=== PATIENT | female | born 1950 | race Caucasian/White ===

== ENCOUNTER 2020-02-04 20:29 | Inpatient (IN) | payer MEDICARE, SELFPAY ==
[2020-02-04 20:45] VITALS: BP 172/73; PULSE 65; RESP 18; TEMP 37.1; O2SAT 95; BMI 25.8
--- NOTE | 2020-02-04 21:03 | ED_ITS ---
HPI - Nausea/Vomiting/Diarrhea General: Chief complaint: Nausea/Vomiting/Diarrhea Stated complaint: N/V Time Seen by Provider: 02/04/20 20:56 History of Present Illness: MD elicited complaint: nausea, vomiting and abdominal pain (epigastric, ruq) Onset (ago): hour(s) (3pm) Description of vomiting: food contents and bilious Associated nausea: Yes Associated abdominal pain: Yes Location of pain: Epigastric and RUQ Severity: moderate Quality: sharp Exacerbating factors: movement Relieving factors: none Associated symtoms: Reports nausea; Denies anxiety, change in vision, chest pain, dizziness, dysuria, headache(s) or palpitations Review of Systems Const: Denies: fever or chills Eyes: Denies: change in vision or blurry vision ENMT: Denies: painful swallowing, post nasal drip or facial/sinus pain Card: Denies: chest pain, palpitations or edema Resp: Denies: shortness of breath, productive cough, non-productive cough or wheezing GI: Reports: nausea : Denies: painful urination or blood in urine Musc: Reports: back pain; Denies: redness or joint warmth Skin/Breast: Denies: rash, itching or redness Neuro: Denies: headache, dizziness, vertigo, confusion or seizure-like activity Psych: Denies: anxiety PFSH ED PFSH: Medical History (Updated 02/05/20 @ 01:21 by Bronson Black DO) Cavernous hemangioma of liver Dyslipidemia Hypertension Spondylolisthesis Social History Smoking and tobacco status: never smoked Physical Exam Const: GENERAL APPEARANCE: well developed ORIENTATION/CONSCIOUSNESS: Yes oriented to person, Yes oriented to place and Yes oriented to time HENMT: COMMON NORMALS: normocephalic, external ears normal and external nose normal HEAD & SCALP: normocephalic FACE & SINUS: normal facial exam NOSE: external nose normal and no nasal discharge EXTERNAL EAR: Yes external ears normal MOUTH: tongue normal TEETH & GINGIVA: no abnormal tooth and associated gingiva Eye: COMMON NORMALS: PERRL, EOMs intact bilaterally and conjunctivae normal EYELID: eyelids normal CONJUNCTIVA: Yes conjunctivae normal PUPIL: Yes PERRL Neck/C-Spine: GENERAL: No tracheal deviation Chest: COMMONS NORMALS: inspection of chest normal CHEST: No tenderness Resp: COMMON NORMALS: clear to auscultation bilaterally EFFORT & INSPECTION: No tachypneic, No respiratory distress, No retractions, No uses accessory muscles and No tracheal deviation AUSCULTATION: clear to auscultation bilaterally, no rhonchi, no wheezes and lung sounds not diminished Cardio: COMMON NORMALS: regular rate and regular rhythm RATE: regular rate RHYTHM: regular rhythm HEART SOUNDS: no murmurs PERIPHERAL PULSES: radial pulses present GI: INSPECTION: No abdominal distension AUSCULTATION: No hyperactive bowel sounds and No hypoactive bowel sounds PALPATION: Yes tender Details: RUQ and other (eigastric), Yes guarding and No rigid PERCUSSION: no dullness to percussion and no tympanic to percussion : COMMON NORMALS: Yes no CVA tenderness BLADDER/KIDNEY EXAM: Yes no CVA tenderness Back/Pelvis: COMMON NORMALS: no CVA tenderness Neuro: SENSORIUM/ORIENTATION: Yes oriented to person, Yes oriented to place and Yes oriented to time Psych: COMMON NORMALS: mental status grossly normal Skin: COMMON NORMALS: no rashes or lesions noted GENERAL SKIN EXAM: no rashes or lesions noted Course Vital Signs: Vital signs: Vital Signs Temperature 98.8 F 02/04/20 20:45 Pulse Rate 70 02/05/20 00:00 Respiratory Rate 16 02/05/20 00:00 Blood Pressure 168/72 02/05/20 00:00 Pulse Oximetry 98 02/05/20 00:00 MDM - Nausea/Vomiting/Diarrhea MDM Narrative: Medical decision making narrative: 69-year-old female with right upper quadrant epigastric pain. She presents after several episodes of vomiting. Pain is improved now, as well as nausea. She is received some IV fluid. Her white count was only 10.5. Her transaminases are normal, but her bilirubin is 4. Her lipase is elevated at 11,000. Gallbladder ultrasound shows a mildly thickened wall with some pericholecystic fluid. There are gallstones present. Bile duct was borderline. MRCP is completed. It shows no ductal stone, normal bile ducts, mild gallbladder wall edema, and pancreatitis. She has been given Zosyn. She will be admitted. Surgery is available for consult. Lab Data: Labs: Lab Results 02/04/20 02/04/20 Range/Units 21:05 21:05 WBC 10.5 H (4.0-10.0) 10^3/ uL RBC 4.60 (4.1-5.3) 10^6/u L Hgb 14.3 (11.5-15.3) g/dL Hct 42.7 (37.0-47.0) % MCV 92.8 (81-99) fL MCH 31.1 (28.0-34.0) pg MCHC 33.5 (30.0-36.0) g/dL RDW 14.9 (12.1-15.1) % Plt Count 108 L (130-400) 10^3/c mm MPV 11.6 H (7.4-10.4) fL Neut % (Auto) 87.2 % Lymph % (Auto) 8.3 % Caroline % (Auto) 3.1 % Eos % (Auto) 0.9 % Baso % (Auto) 0.2 % Neut # (Auto) 9.2 H (1.8-7.7) 10^3/u L Lymph # (Auto) 0.9 (0.8-4.8) 10^3/u L Caroline # (Auto) 0.3 (0.2-0.9) 10^3/u L Eos # (Auto) 0.1 (0.0-0.8) 10^3/u L Baso # (Auto) 0.0 (0.0-0.1) 10^3/u L Nucleated RBC % (a uto) 0 % Nucleated RBCs # 0.0 /100WBC Sodium 140 (136-145) mmol/L Potassium 4.0 (3.5-5.1) mmol/L Chloride 104 (98-107) mmol/L Carbon Dioxide 23 (22-29) mmol/L Anion Gap 17.0 (5-19) BUN 15 (8-23) mg/dL Creatinine 1.2 H (0.5-0.9) mg/dL GFR Calculation 44.8 L (90-130) mL/min Glucose 150 H (65-115) mg/dL Calculated Osmolal ity 289 (285-295) mOsm/k g Calcium 9.5 (8.5-10.5) mg/dL Total Bilirubin 4.0 H (0.15-1.2) mg/dL AST 80 H (0-32) U/L ALT 31 (0-33) U/L Alkaline Phosphata se 78 (35-105) IU/L Total Protein 7.3 (6.6-8.7) g/dL Albumin 3.6 (3.5-5.2) g/dL Globulin 3.7 (1.3-4.6) g/dL Lipase 70715 H (13-60) U/L Discharge Plan Discharge Patient Disposition: Admitted As Inpatient Clinical Impression: Acute pancreatitis, Cholecystitis with cholelithiasis Condition: Stable Coding Level of Care Code ED Manager Collection for Chg Fwd Exam Comprehensive
--- NOTE | 2020-02-04 21:13 | USR_ITS ---
PROCEDURE INFORMATION: Exam: US Abdomen Limited, Right Upper Quadrant Exam date and time: 02/04/2020 10:04 PM Age: 69 years old Clinical indication: Abdominal pain; Acute; Additional info: Ruq pain TECHNIQUE: Imaging protocol: Real-time ultrasound of the abdomen with image documentation. Examination was focused on the right upper quadrant. COMPARISON: US abdomen limited [id number] 12/24/2017 10:23 AM FINDINGS: Liver: Slight increased echogenicity of the liver may indicate fatty infiltration. Otherwise unremarkable liver, no focal abnormality. Gallbladder: There appear to be gallstones and possibly some biliary sludge in the gallbladder. Moderate gallbladder wall thickening/edema, measuring up to 6.8 mm. No definite pericholecystic fluid. The gallbladder appears somewhat distended, transverse diameter up to 4.5 cm. Technologist states patient was tender over the gallbladder region during scanning. Common bile duct: Borderline/mild biliary tree prominence, with common duct measuring up to 5.6 mm. No visible common duct stone by ultrasound. Significance uncertain. Correlation with laboratory/bilirubin levels may be helpful to determine if there is any significant biliary obstruction. Pancreas: Visible pancreas unremarkable. Right kidney: Images of the right kidney show no hydronephrosis. US/US gall bladder [id number] IMPRESSION: 1. Cholelithiasis, see additional details above. 2. Borderline/mild biliary tree prominence, see above discussion. 3. Other findings discussed above.
[2020-02-04 21:16] LABS: Basophils % 0.2 %; Eosinophils # 0.1 10^3/uL (0.0-0.8); Eosinophils % 0.9 %; Hematocrit 42.7 % (37.0-47.0); Hemoglobin 14.3 g/dL (11.5-15.3); Lymphocytes # 0.9 10^3/uL (0.8-4.8); Lymphocytes % 8.3 %; Mean Corpuscular HGB Conc 33.5 g/dL (30.0-36.0); Mean Corpuscular Hemoglobin 31.1 pg (28.0-34.0); Mean Corpuscular Volume 92.8 fL (81-99); Mean Platelet Volume 11.6 fL (7.4-10.4); Monocytes # 0.3 10^3/uL (0.2-0.9); Monocytes % 3.1 %; Neutrophils # 9.2 10^3/uL (1.8-7.7); Neutrophils % 87.2 %; Nucleated Red Blood Cells % 0 %; Platelet Count 108 10^3/cmm (130-400); Red Cell Distribution Width 14.9 % (12.1-15.1); White Blood Count 10.5 10^3/uL (4.0-10.0)
[2020-02-04 21:32] LABS: Alanine Aminotransferase 31 U/L (0-33); Albumin Level 3.6 g/dL (3.5-5.2); Alkaline Phosphatase 78 IU/L (35-105); Aspartate Amino Transferase 80 U/L (0-32); Blood Urea Nitrogen 15 mg/dL (8-23); Calcium 9.5 mg/dL (8.5-10.5); Carbon Dioxide 23 mmol/L (22-29); Chloride 104 mmol/L (98-107); Globulin 3.7 g/dL (1.3-4.6); Glomerular Filtration Rate 44.8 mL/min (90-130); Glucose 150 mg/dL (65-115); Osmolality Calculated 289 mOsm/kg (285-295); Sodium 140 mmol/L (136-145); Total Protein 7.3 g/dL (6.6-8.7)
[2020-02-04] MEDS: ondansetron 2 mg/ML SDV 2 mL 4 MG IVP (21:57)
[2020-02-04] MEDS: ketorolac 30 mg/mL INJ IVP (21:58)
[2020-02-04 22:00] VITALS: RESP 18; O2SAT 98
[2020-02-04] MEDS: fentaNYL 50 mcg/mL INJ 2mL IVP ×2 (22:00→23:36)
[2020-02-04] MEDS: sodium chloride 0.9% 1,000 ML 999 ML IV (22:03)
[2020-02-04 22:21] LABS: Lipase 11122 U/L (13-60)
--- NOTE | 2020-02-04 22:28 | MRR_ITS ---
PROCEDURE INFORMATION: Exam: MR Abdomen Without Contrast Exam date and time: 02/04/2020 11:27 PM Age: 69 years old Clinical indication: Abdominal pain; Prior surgery; Additional info: Hyperbilirubinemia, pancreatits, cholecystitis. TECHNIQUE: Imaging protocol: MR of the abdomen without contrast. COMPARISON: US gall bladder [id number] 02/04/2020 9:52 PM FINDINGS: Liver: Irregularity of liver contour is suspicious for cirrhosis. Gallbladder and bile ducts: Gallbladder is distended to a length of approximately 9.1 cm by diameter 4.6 cm. Wall thickening and pericholecystic edema are noted. Small quantity of cholelithiasis suspected. Common bile duct diameter is normal and no abnormal filling defects are evident. Pancreas: Extensive/marked peripancreatic edema noted. Spleen: Unremarkable. No splenomegaly. Adrenals: Unremarkable. No mass. Kidneys and ureters: Unremarkable. No solid mass. No hydronephrosis. Stomach and bowel: Visualized stomach and intestines are unremarkable. Intraperitoneal space: Small ascites. Arteries: No abdominal aortic aneurysm. Bones/joints: Surgical changes are suggested at lumbar spine. Soft tissues: Unremarkable. MR/MR MRCP [id number] IMPRESSION: Findings consistent with pancreatitis. Moderate to marked gallbladder distention with small quantity cholelithiasis and wall thickening; wall thickening can relate to acute or chronic inflammatory change. Findings suspicious for cirrhosis. Normal common bile duct and no findings of abnormal filling defects.
[2020-02-04 23:36] VITALS: RESP 16
--- NOTE | 2020-02-04 23:36 | PC.NURSE ---
Ems here to transfer patient to have MRI. Patients iv [facility]l per request for trip. Patient left in stable condition in care of ems.
[2020-02-05] VITALS (10 sets, daily range): BP systolic 130–168; BP diastolic 68–86; PULSE 58–101; RESP 16–20; TEMP 36.6–37.3; O2SAT 91–98
--- NOTE | 2020-02-05 00:33 | PC.NURSE ---
Patient back from MRI.
[2020-02-05] MEDS: sodium chloride 0.9% 1,000 ML 999 ML IV (00:56)
--- NOTE | 2020-02-05 01:06 | P.HP_ITS ---
Providers/Chief Complaint Chief Complaint: N/V History of Present Illness Yeni Carreno is a 69 year old female who carries diagnosis of ANDRADE came in with chief complaint of abdominal pain. Patient is stating that around 8 in the morning she went to [employer] drive-through to have a sandwich. After eating that sandwich she started experiencing abdominal pain around 1 PM which gradu ally got worse today and she decided to come to the ER for further evaluation around evening. She experienced multiple episodes of nausea and vomiting, more than 10 episodes today. No fever was noticed at home, her pain was 10/10 mostly in epigastric region radiating towards her back. She also noticed right upper quadrant pain which was getting worse as well. She has never experienced these kind of symptoms before. She does not take aspirin or Tylenol and larger doses on daily basis. She does not drink alcohol or smoke. She is denying fever, dysuria, diarrhea, constipation, chest pain, shortness of breath, sick contacts, traveling. Diagnostics in ER revealed mild leukocytosis, patient was afebrile, icteric, bilirubin 4, MRCP revealed normal CBD, positive for pancreatitis, high lipase, gallbladder wall thickening She has required multiple doses of opioids in the ER, no active emesis Review of Systems Const: Reports: chills, body aches and fatigue; Denies: fever Eyes: Denies: change in vision ENMT: Denies: throat pain Card: Denies: chest pain Resp: Denies: shortness of breath GI: Reports: abdominal pain, nausea and vomiting; Denies: vomiting blood, coffee grounds in vomit, difficulty swallowing, heartburn/indigestion or feeling full early : Denies: flank pain or difficulty urinating Musc: Denies: neck pain or back pain Skin/Breast: Denies: skin pain or new lesion Neuro: Denies: headache Psych: Denies: anxiety Endo: Denies: excessive urination Umer/Lymph: Denies: easy bruising All/Imm: Denies: hives Medications/Allergies Allergies Allergy/AdvReac Type Severity Reaction Status Date / Time oxycodone Allergy ALGY-Rash Verified 02/04/20 20:42 PFSH Acute PFSH: Medical History Cavernous hemangioma of liver Dyslipidemia Fibrocystic breast determined by biopsy Hypertension ANDRADE (nonalcoholic steatohepatitis) Spondylolisthesis Surgical History History of liver biopsy Previous back surgery L4-L5 ildefonso placement S/P thyroid biopsy Nonmalignant nodule Family History Denies family history of Diabetes Clotting disorder Dementia Chronic kidney disease (CKD) Cancer Social History Smoking and tobacco status: never smoked Alcohol intake: never Substance/Drug Use: never Household members: spouse Housing: House Vitals/I&O/Wt Last Vital Signs Temp 98.8 F 02/04/20 20:45 Pulse 70 02/05/20 00:00 Resp 16 02/05/20 00:00 BP 168/72 02/05/20 00:00 Pulse Ox 98 02/05/20 00:00 Weight last 48 hrs Weight 74.843 kg Physical Exam Narrative: EXAM NARRATIVE: This is a pleasant female comfortably lying in her bed without any active distress Patient is afebrile Sinus rhythm, heart rate 70 Systolic blood pressure 160 S1, S2 no signs of heart failure or tachycardia Abdomen tenderness to palpation in epigastric and right upper quadrant region, Donnelly's sign is positive, no signs of retroperitoneal hemorrhage Neurologically nonfocal exam EOMI, PERRLA GCS 15 Appropriate mood and affect Skin does not show any sign ischemia gangrene or ulcer Patient seems dehydrated, dry buccal mucosal membrane Data : 02/04/20 21:05 02/04/20 21:05 A&P Assessment and plan (1) Acute pancreatitis: Status: Acute Qualifiers: Acute pancreatitis complication: unspecified Pancreatitis type: biliary Qualified Code(s): K85.10 - Biliary acute pancreatitis without necrosis or infection (2) Cholecystitis with cholelithiasis: Status: Acute Qualifiers: Biliary obstruction: without biliary obstruction Cholecystitis acuity: acute Cholelithiasis location: gallbladder Qualified Code(s): K80.00 - Calculus of gallbladder with acute cholecystitis without obstruction Additional A&P Information Gallstone induced acute pancreatitis without signs of cholangitis Cholelithiasis induced cholecystitis without ductal obstruction Abdominal pain, afebrile, bilirubin 4 Mild leukocytosis, I will start her on D5 LR along Zosyn MRCP reviewed, normal CBD I believe irritation of pancreas is due to passage of stone Monitor bilirubin, liver enzymes in next 24 to 48 hours and if they are worsening she will need ERCP She will be needing elective cholecystectomy once this acute episode resolves in next 6 to 8 weeks No urgent need for general surgery consult Patient is a non-smoker, nonalcoholic, positive for Andrade N.p.o. Analgesic with morphine Protonix 40 mg IV daily Acute kidney injury secondary to dehydration: Anticipating improvement with hydration Hypertension: I would hold her hydrochlorothiazide and losartan because these 2 medications are associated with drug-induced pancreatitis as well Would use hydralazine for as needed basis DVT prophylaxis: Heparin Full code Attestations Medical Necessity Statement*: Gallstone induced pancreatitis, needs monitoring in the hospital for at least 48 hours, anticipating stay in the hospital to cross more than 2 midnights Time Spent in Patient Care: 40 Coding Level of Care Code Acute Sole Inker for [facility] Diagnoses Acute pancreatitis K85.10 Acute pancreatitis complication: unspecified Pancreatitis type: biliary Cholecystitis with cholelithiasis K80.00 Biliary obstruction: without biliary obstruction Cholecystitis acuity: acute Cholelithiasis location: gallbladder
[2020-02-05 01:56] LABS: Triglycerides 95 mg/dL (0-150)
[2020-02-05] MEDS: dextrose 5%-lactated ringers 1,000 ML 100 ML IV (02:22)
[2020-02-05] MEDS: morphine 4 mg/mL SDV 1 mL 2 MG IVP ×4 (02:24→19:51)
[2020-02-05] MEDS: heparin 5,000 unit/mL INJ 1 mL 5000 UNIT SUBCUT ×3 (02:24→18:07)
[2020-02-05] MEDS: ondansetron 2 mg/ML SDV 2 mL 4 MG IVP ×2 (04:17→09:14)
[2020-02-05] MEDS: piperacillin-tazobactam 3.375 GM in sodium chloride 0.9% (plus) 50 ML IV ×3 (04:18→20:03)
[2020-02-05 05:31] LABS: Basophils % 0.1 %; Eosinophils % 0.1 %; Hemoglobin 14.1 g/dL (11.5-15.3); Lymphocytes # 0.8 10^3/uL (0.8-4.8); Lymphocytes % 8.6 %; Mean Corpuscular Hemoglobin 30.7 pg (28.0-34.0); Mean Corpuscular Volume 95.9 fL (81-99); Mean Platelet Volume 12.2 fL (7.4-10.4); Monocytes # 0.4 10^3/uL (0.2-0.9); Monocytes % 4.3 %; Neutrophils % 86.7 %; Nucleated Red Blood Cells % 0 %; Platelet Count 117 10^3/cmm (130-400); Red Blood Count 4.59 10^6/uL (4.1-5.3); Red Cell Distribution Width 15.1 % (12.1-15.1); White Blood Count 9.2 10^3/uL (4.0-10.0)
[2020-02-05 07:32] LABS: Alanine Aminotransferase 24 U/L (0-33); Albumin Level 2.9 g/dL (3.5-5.2); Alkaline Phosphatase 59 IU/L (35-105); Anion Gap 15.9 (5-19); Aspartate Amino Transferase 60 U/L (0-32); Blood Urea Nitrogen 22 mg/dL (8-23); Calcium 8.3 mg/dL (8.5-10.5); Carbon Dioxide 22 mmol/L (22-29); Chloride 108 mmol/L (98-107); Creatinine Clr Calc Pharmacy 38.4349; Globulin 3.5 g/dL (1.3-4.6); Glomerular Filtration Rate 34.6 mL/min (90-130); Glucose 137 mg/dL (65-115); Osmolality Calculated 293 mOsm/kg (285-295); Potassium 3.9 mmol/L (3.5-5.1); Sodium 142 mmol/L (136-145); Total Protein 6.4 g/dL (6.6-8.7)
[2020-02-05 07:34] LABS: Lactic Acid level (Lactate) 1.7 mmol/L (0.5-2.2)
[2020-02-05 08:47] LABS: Lipase 5380 U/L (13-60)
[2020-02-05] MEDS: pantoprazole 40 mg SDV IVP (09:07)
--- NOTE | 2020-02-05 12:00 | P.PN_ITS ---
Subjective Subjective: Interval history: Patient continues to have abdominal pain, epigastric. Reports that better compared to yesterday and reports that pain medications are working well. Denies any shortness of breath or chest pain. Denies previous episodes of the same. Her pancreatitis appears to be gallstone related. It appears that she passed a stone as her MRCP shows no evidence of s tone in the common bile duct. Lipase is down to 5380. Patient is not diabetic and denies previous history of heart disease or stroke. She is retired and at times participates with her friend and cutting wood which is a significant physical activity and she denies any shortness of breath during it. Denies chest pain. Vitals/I&O/Wt Last Vital Signs Temp 98.5 F 02/05/20 07:25 Pulse 58 L 02/05/20 07:25 Resp 17 02/05/20 07:25 BP 147/75 02/05/20 07:25 Pulse Ox 94 02/05/20 07:25 02/04/20 02/05/20 02/05/20 22:59 06:59 14:59 Intake Total 1380 / 1380 Balance 1380 / 1380 Weight last 48 hrs Weight 74.843 kg Physical Exam Const: COMMON NORMALS: no apparent distress and oriented x3 Resp: COMMON NORMALS: normal respiratory effort and clear to auscultation bilaterally AUSCULTATION: clear to auscultation bilaterally Cardio: COMMON NORMALS: regular rate, regular rhythm and S2 normal heart sound RATE: regular rate RHYTHM: regular rhythm HEART SOUNDS: S2 normal OTHER: No lower extremity edema GI: COMMON NORMALS: soft to palpation PALPATION: Yes soft and Yes tender (Epigastric area mostly.) Neuro: COMMON NORMALS: oriented x3 and no focal motor deficits Data : 02/05/20 05:16 02/05/20 06:59 A&P Assessment and plan (1) Acute pancreatitis: Status: Acute Qualifiers: Acute pancreatitis complication: unspecified Pancreatitis type: biliary Qualified Code(s): K85.10 - Biliary acute pancreatitis without necrosis or infection (2) Cholecystitis with cholelithiasis: Status: Acute Qualifiers: Biliary obstruction: without biliary obstruction Cholecystitis acuity: acute Cholelithiasis location: gallbladder Qualified Code(s): K80.00 - Calculus of gallbladder with acute cholecystitis without obstruction Additional A&P Information Gallstone induced acute pancreatitis without signs of cholangitis Cholelithiasis induced cholecystitis without ductal obstruction Acute kidney injury secondary to dehydration: Anticipating improvement with hydration Hypertension PLAN: We will change IV fluids to LR and increase to 200 mL/h. Continue with analgesics and antiemetics. Discussed case with Dr. Guerrero who will see patient in consultation. Patient will require cholecystectomy ideally sooner. We will let Dr. Guerrero to evaluate and decide on timeframe. Continue Zosyn. Keep n.p.o. for now since patient still continues to have significant pain. DVT prophylaxis: Heparin Full code Attestations Medical Necessity Statement*: Patient with pancreatitis and cholecystitis requires close inpatient monitoring and treatment Coding Level of Care Code Acute Administrative Assistant Coordinator for [facility] Diagnoses Acute pancreatitis K85.10 Acute pancreatitis complication: unspecified Pancreatitis type: biliary Cholecystitis with cholelithiasis K80.00 Biliary obstruction: without biliary obstruction Cholecystitis acuity: acute Cholelithiasis location: gallbladder
[2020-02-05] MEDS: lactated ringers 1,000 ML 200 ML IV ×2 (12:32→17:20)
--- NOTE | 2020-02-05 17:03 | PC.NURSE ---
pt is ice chips only
[2020-02-06] VITALS (13 sets, daily range): BP systolic 120–137; BP diastolic 72–81; PULSE 81–107; RESP 16–20; TEMP 36.4–38.1; O2SAT 89–94
[2020-02-06] MEDS: heparin 5,000 unit/mL INJ 1 mL 5000 UNIT SUBCUT ×3 (01:42→17:26)
[2020-02-06] MEDS: morphine 4 mg/mL SDV 1 mL 2 MG IVP ×5 (02:56→22:02)
[2020-02-06] MEDS: lactated ringers 1,000 ML 200 ML IV ×4 (02:59→23:31)
[2020-02-06] MEDS: piperacillin-tazobactam 3.375 GM in sodium chloride 0.9% (plus) 50 ML IV ×3 (03:54→21:41)
[2020-02-06] MEDS: pantoprazole 40 mg SDV IVP (08:36)
[2020-02-06 09:30] LABS: Basophils % 0.2 %; Eosinophils % 0.1 %; Hematocrit 41.4 % (37.0-47.0); Hemoglobin 13.6 g/dL (11.5-15.3); Lymphocytes # 1.6 10^3/uL (0.8-4.8); Lymphocytes % 9.2 %; Mean Corpuscular HGB Conc 32.9 g/dL (30.0-36.0); Mean Corpuscular Hemoglobin 31.1 pg (28.0-34.0); Mean Corpuscular Volume 94.5 fL (81-99); Monocytes # 1.2 10^3/uL (0.2-0.9); Nucleated Red Blood Cells % 0 %; Platelet Count 93 10^3/cmm (130-400); Red Blood Count 4.38 10^6/uL (4.1-5.3); Red Cell Distribution Width 15.5 % (12.1-15.1); White Blood Count 16.8 10^3/uL (4.0-10.0)
[2020-02-06 09:45] LABS: Alanine Aminotransferase 20 U/L (0-33); Albumin Level 2.8 g/dL (3.5-5.2); Alkaline Phosphatase 56 IU/L (35-105); Aspartate Amino Transferase 54 U/L (0-32); Blood Urea Nitrogen 28 mg/dL (8-23); Calcium 7.4 mg/dL (8.5-10.5); Carbon Dioxide 23 mmol/L (22-29); Chloride 107 mmol/L (98-107); Globulin 3.4 g/dL (1.3-4.6); Glomerular Filtration Rate 40.9 mL/min (90-130); Glucose 110 mg/dL (65-115); Osmolality Calculated 288 mOsm/kg (285-295); Sodium 140 mmol/L (136-145); Total Bilirubin 2.5 mg/dL (0.15-1.2); Total Protein 6.2 g/dL (6.6-8.7)
[2020-02-06 10:52] LABS: Lipase 1216 U/L (13-60)
--- NOTE | 2020-02-06 12:59 | P.PN_ITS ---
Subjective Subjective: Interval history: Patient continues to have significant epigastric area abdominal pain. Analgesics work adequately until start wearing off. She denies shortness of breath or chest pain. Her platelets declined and white blood cell count increased to 16.8. She remains afebrile. She has approximately 3 L of positive fluid balance. Reports that she urinated once nighttime and 2-3 times since this morning. Liver enzymes are coming down same as lipase is down to 1216. Vitals/I&O/Wt Last Vital Signs Temp 98.8 F 02/06/20 11:35 Pulse 88 02/06/20 11:35 Resp 18 02/06/20 11:35 BP 120/73 02/06/20 11:35 Pulse Ox 92 02/06/20 11:35 02/05/20 02/06/20 02/06/20 22:59 06:59 14:59 Intake Total 1556.667 / 1556.667 900 / 2456.667 1000 / 1000 Output Total 0 / 0 300 / 300 Balance 1556.667 / 1556.667 600 / 2156.667 1000 / 1000 Weight last 48 hrs Weight 74.843 kg Physical Exam Const: COMMON NORMALS: no apparent distress and oriented x3 Resp: COMMON NORMALS: normal respiratory effort and clear to auscultation bilaterally AUSCULTATION: clear to auscultation bilaterally Cardio: COMMON NORMALS: regular rate, regular rhythm and S2 normal heart sound RATE: regular rate RHYTHM: regular rhythm HEART SOUNDS: S2 normal OTHER: No lower extremity edema GI: COMMON NORMALS: soft to palpation PALPATION: Yes soft and Yes tender (Epigastric area mostly.) Neuro: COMMON NORMALS: oriented x3 and no focal motor deficits Data : 02/06/20 09:20 02/06/20 09:20 A&P Assessment and plan (1) Acute pancreatitis: Status: Acute Qualifiers: Acute pancreatitis complication: unspecified Pancreatitis type: biliary Qualified Code(s): K85.10 - Biliary acute pancreatitis without necrosis or infection (2) Cholecystitis with cholelithiasis: Status: Acute Qualifiers: Biliary obstruction: without biliary obstruction Cholecystitis acuity: acute Cholelithiasis location: gallbladder Qualified Code(s): K80.00 - Calculus of gallbladder with acute cholecystitis without obstruction Additional A&P Information Gallstone induced acute pancreatitis without signs of cholangitis Cholelithiasis induced cholecystitis without ductal obstruction Acute kidney injury secondary to dehydration: Anticipating improvement with hydration Hypertension PLAN: Continue IV fluids and Zosyn. Consider repeating CT scan if white blood cell count continues to increase. Continue monitoring ins and outs. Low threshold for ICU transfer if worsening. DVT prophylaxis: Heparin Full code Attestations Medical Necessity Statement*: Patient with acute pancreatitis requires close inpatient monitoring and treatment. Coding Level of Care Code Acute Lands Resource Manager for [facility] Diagnoses Acute pancreatitis K85.10 Acute pancreatitis complication: unspecified Pancreatitis type: biliary Cholecystitis with cholelithiasis K80.00 Biliary obstruction: without biliary obstruction Cholecystitis acuity: acute Cholelithiasis location: gallbladder
--- NOTE | 2020-02-06 13:08 | PM.CONSULT ---
Providers/Reason For Consult Consulting Physican/Specialty*: Dr. Murphy Reason for Consult*: Gallstone pancreatitis Attending Physician: Jayesh Murphy MD History of Present Illness History of Present Illness Yeni Carreno is a 69 year old female who presented to the ER with abdominal pain after she ate at [employer] earlier that morning. Patient states that over the course of the day her pain got progressively worse and she had multiple episodes of nausea and vomiting. No similar episodes in the past. Patient had been told that she had fatty liver on previous imaging. Denies any history of peptic ulcer disease or pancreatitis. She does not drink any alcohol. Denies any constipation or diarrhea. Review of Systems General: Reports: 10 or more systems reviewed and unremarkable except in HPI and below Meds/Allergies Home Medications and Allergies Allergies Allergy/AdvReac Type Severity Reaction Status Date / Time oxycodone Allergy ALGY-Rash Verified 02/04/20 20:42 Current Medications Current Medications Generic Name Dose Route Start Last Admin Trade Name Freq PRN Reason Stop Dose Admin Heparin Sodium (Beef Lung) 5,000 unit 02/05/20 01:53 02/06/20 08:45 Heparin SUBCUT 5,000 unit Q8H SAMINA Administration Piperacillin Sod/Tazobactam 50 mls @ 12.5 mls/hr 02/05/20 02:30 02/06/20 11:49 Sod 3.375 gm/ Sodium Chloride IV 100 mls/hr Q8H SAMINA Administration Protocol Lactated Ringer's 1,000 mls @ 200 mls/hr 02/05/20 12:15 02/06/20 11:49 Lactated Ringers IV 200 mls/hr .Q5H SAMINA Administration Morphine Sulfate 2 mg 02/05/20 02:41 02/06/20 08:35 Morphine IVP 2 mg Q4H PRN Administration PAIN Ondansetron HCl 4 mg 02/05/20 01:53 02/05/20 09:14 Zofran IVP 4 mg Q6H PRN Administration NAUSEA AND VOMITING Pantoprazole Sodium 40 mg 02/05/20 09:00 02/06/20 08:36 Protonix IVP 40 mg DAILY SAMINA Administration PFSH Acute PFSH: Medical History Cavernous hemangioma of liver Dyslipidemia Fibrocystic breast determined by biopsy Hypertension RIGGS (nonalcoholic steatohepatitis) Spondylolisthesis Surgical History History of liver biopsy Previous back surgery L4-L5 ildefonso placement S/P thyroid biopsy Nonmalignant nodule Family History Denies family history of Diabetes Clotting disorder Dementia Chronic kidney disease (CKD) Cancer Social History Smoking and tobacco status: never smoked Alcohol intake: never Substance/Drug Use: never Household members: spouse Housing: House Vitals/I&O/Wt Last Vital Signs Temp 98.8 F 02/06/20 11:35 Pulse 88 02/06/20 11:35 Resp 18 02/06/20 11:35 BP 120/73 02/06/20 11:35 Pulse Ox 92 02/06/20 11:35 02/05/20 02/06/20 02/06/20 22:59 06:59 14:59 Intake Total 1556.667 / 2456.667 900 / 2456.667 1000 / 1000 Output Total 0 / 300 300 / 300 Balance 1556.667 / 2156.667 600 / 2156.667 1000 / 1000 Weight last 48 hrs Weight 165 lb Physical Exam Narrative: EXAM NARRATIVE: HEENT: Normocephalic Eye: Sclera /conjunctiva normal Respiratory and chest: Bilateral clear breath sounds on auscultation Cardiovascular: Normal S1 and S2 heart sounds Abdomen: Soft to palpation, tender epigastric region Neurological: Oriented to place person and time Skin: Intact, no lesions appreciated on gross exam A&P Assessment and plan (1) Gallstone pancreatitis: 69-year female who presents to the ER with history of abdominal pain nausea and vomiting with lipase greater than 11,000. An MRCP showed no evidence of CBD stone. An ultrasound showed gallbladder wall thickening associated with cholelithiasis. Since admission her abdominal pain is improved and her lipase is down to 1200 today. She needs a laparoscopic cholecystectomy once the inflammation has subsided and she can be advanced her diet as her pain improves. In the meantime she will need to continue with bowel rest. Continue IV fluids I will tentatively schedule her for laparoscopic possible open cholecystectomy on 02/14/2020. Status: Acute Coding Level of Care Code Acute Senior Clinical Project Manager for [employer] Diagnoses Gallstone pancreatitis K85.10
--- NOTE | 2020-02-06 18:17 | PC.RESP ---
Continuous pulse oximeter placed on patient.
[2020-02-07] VITALS (10 sets, daily range): BP systolic 122–144; BP diastolic 64–78; PULSE 77–97; RESP 17–21; TEMP 36.7–37.1; O2SAT 93–95
[2020-02-07] MEDS: heparin 5,000 unit/mL INJ 1 mL 5000 UNIT SUBCUT ×3 (03:08→17:47)
[2020-02-07] MEDS: morphine 4 mg/mL SDV 1 mL 2 MG IVP ×4 (03:13→22:06)
[2020-02-07] MEDS: lactated ringers 1,000 ML 200 ML IV ×4 (05:09→22:06)
[2020-02-07 05:35] LABS: Basophils % 0.2 %; Eosinophils % 0.1 %; Hematocrit 38.8 % (37.0-47.0); Hemoglobin 12.8 g/dL (11.5-15.3); Lymphocytes # 1.6 10^3/uL (0.8-4.8); Lymphocytes % 11.1 %; Mean Corpuscular Hemoglobin 30.8 pg (28.0-34.0); Mean Corpuscular Volume 93.5 fL (81-99); Mean Platelet Volume 11.1 fL (7.4-10.4); Monocytes # 0.9 10^3/uL (0.2-0.9); Monocytes % 6.1 %; Neutrophils # 11.9 10^3/uL (1.8-7.7); Neutrophils % 82.1 %; Nucleated Red Blood Cells % 0 %; Platelet Count 94 10^3/cmm (130-400); Red Blood Count 4.15 10^6/uL (4.1-5.3); Red Cell Distribution Width 15.2 % (12.1-15.1); White Blood Count 14.5 10^3/uL (4.0-10.0)
[2020-02-07 05:53] LABS: Alanine Aminotransferase 19 U/L (0-33); Albumin Level 2.8 g/dL (3.5-5.2); Alkaline Phosphatase 52 IU/L (35-105); Anion Gap 14.7 (5-19); Aspartate Amino Transferase 51 U/L (0-32); Blood Urea Nitrogen 27 mg/dL (8-23); Carbon Dioxide 22 mmol/L (22-29); Chloride 105 mmol/L (98-107); Globulin 3.3 g/dL (1.3-4.6); Glomerular Filtration Rate 49.5 mL/min (90-130); Glucose 103 mg/dL (65-115); Osmolality Calculated 283 mOsm/kg (285-295); Potassium 3.7 mmol/L (3.5-5.1); Sodium 138 mmol/L (136-145); Total Bilirubin 2.6 mg/dL (0.15-1.2); Total Protein 6.1 g/dL (6.6-8.7)
[2020-02-07 06:06] LABS: Lipase 451 U/L (13-60)
[2020-02-07] MEDS: piperacillin-tazobactam 3.375 GM in sodium chloride 0.9% (plus) 50 ML IV ×3 (06:11→22:06)
[2020-02-07] MEDS: pantoprazole 40 mg SDV IVP (08:15)
--- NOTE | 2020-02-07 09:59 | PC.NURSE ---
Ostomy bad and wafer changed. Skin intact with some dried skin noted, ostomy pink with no concerns noted.
[2020-02-07] MEDS: ondansetron 2 mg/ML SDV 2 mL 4 MG IVP ×2 (10:12→19:39)
--- NOTE | 2020-02-07 11:50 | P.PN_ITS ---
Subjective Subjective: Interval history: Patient has been doing well, her abdominal pain is better, her main complaint is back pain. No nausea or vomiting Vitals/I&O/Wt Last Vital Signs Temp 98.0 F 02/07/20 11:31 Pulse 80 02/07/20 11:31 Resp 18 02/07/20 11:31 BP 144/64 02/07/20 11:31 Pulse Ox 93 02/07/20 11:31 02/06/20 02/07/20 02/07/20 22:59 06:59 14:59 Intake Total 2330 / 4503.333 1123.333 / 4503.333 1046.667 / 1046.667 Output Total 360 / 480 120 / 480 Balance 1970 / 4023.333 1003.333 / 4023.333 1046.667 / 1046.667 Physical Exam Narrative: EXAM NARRATIVE: Abdomen: Soft, nondistended, minimally tender Data : 02/07/20 05:26 02/07/20 05:26 A&P Assessment and plan (1) Gallstone pancreatitis: 69-year-old female with gallstone pancreatitis, clinically better. Her lipase is down to 250. Advance diet as tolerated We will schedule her for laparoscopic cholecystectomy next week Status: Acute Attestations Medical Necessity Statement*: Gallstone pancreatitis requiring continued inpatient stay Coding Level of Care Code Acute Automotive Internet Sales Consultant for [employer] Diagnoses Gallstone pancreatitis K85.10
--- NOTE | 2020-02-07 13:15 | P.PN_ITS ---
Subjective Subjective: Interval history: Patient reports feeling better today. Reports that her pain is now moderate, 5 out of 10. Reports that she wants to try some clear liquids and Jell-O. Denies shortness of breath or chest pain. Reports good urinary output. Her white blood cell count slightly down and platelets appear to plateau. Creatinine further down to 1.1. Lipase is down to 451. Discussed with Dr. Guerrero and plan to proceed with cholecystectomy next Friday. Patient voiced that she wants to stay until next Friday in the hospital because of coronavirus and does not want to get her grandchildren infected. She denies cough or fever. She shows no concerning signs and symptoms of COVID19 Vitals/I&O/Wt Last Vital Signs Temp 98.0 F 02/07/20 11:31 Pulse 80 02/07/20 11:31 Resp 18 02/07/20 11:31 BP 144/64 02/07/20 11:31 Pulse Ox 93 02/07/20 11:31 02/06/20 02/07/20 02/07/20 22:59 06:59 14:59 Intake Total 2330 / 3380 1123.333 / 4503.333 1046.667 / 1046.667 Output Total 360 / 360 120 / 480 Balance 1970 / 3020 1003.333 / 4023.333 1046.667 / 1046.667 Physical Exam Const: COMMON NORMALS: no apparent distress and oriented x3 Resp: COMMON NORMALS: normal respiratory effort and clear to auscultation bilaterally AUSCULTATION: clear to auscultation bilaterally Cardio: COMMON NORMALS: regular rate, regular rhythm and S2 normal heart sound RATE: regular rate RHYTHM: regular rhythm HEART SOUNDS: S2 normal OTHER: No lower extremity edema GI: COMMON NORMALS: normal to inspection, nondistended, normoactive bowel sounds and soft to palpation PALPATION: Yes soft and Yes tender (Mostly upper abdomen) Neuro: COMMON NORMALS: oriented x3 and no focal motor deficits Data : 02/07/20 05:26 02/07/20 05:26 A&P Assessment and plan (1) Acute pancreatitis: Status: Resolved Qualifiers: Acute pancreatitis complication: unspecified Pancreatitis type: biliary Qualified Code(s): K85.10 - Biliary acute pancreatitis without necrosis or infection (2) Cholecystitis with cholelithiasis: Status: Resolved Qualifiers: Biliary obstruction: without biliary obstruction Cholecystitis acuity: acute Cholelithiasis location: gallbladder Qualified Code(s): K80.00 - Calculus of gallbladder with acute cholecystitis without obstruction Additional A&P Information Gallstone induced acute pancreatitis without signs of cholangitis Cholelithiasis induced cholecystitis without ductal obstruction Acute kidney injury secondary to dehydration: Anticipating improvement with hydration Hypertension PLAN: Continue current monitoring and treatment. Gradually advance diet as tolerated. Once clinically improves and able to have adequate oral intake we will dismiss patient home. Patient will need to come back on Friday for surgery. Discussed with RN and we will let patient drink water and have Jell-O. DVT prophylaxis: Heparin Full code Attestations Medical Necessity Statement*: Patient with pancreatitis requires close inpat ient monitoring and treatment until deemed safe for discharge. Coding Level of Care Code Acute Archivist Political History for [facility] Diagnoses Acute pancreatitis K85.10 Acute pancreatitis complication: unspecified Pancreatitis type: biliary Cholecystitis with cholelithiasis K80.00 Biliary obstruction: without biliary obstruction Cholecystitis acuity: acute Cholelithiasis location: gallbladder
[2020-02-08] VITALS (8 sets, daily range): BP systolic 116–153; BP diastolic 70–84; PULSE 73–93; RESP 16–20; TEMP 36.7–37.4; O2SAT 92–96
[2020-02-08] MEDS: lactated ringers 1,000 ML 200 ML IV ×2 (03:54→10:01)
[2020-02-08] MEDS: heparin 5,000 unit/mL INJ 1 mL 5000 UNIT SUBCUT ×3 (03:54→17:37)
[2020-02-08] MEDS: morphine 4 mg/mL SDV 1 mL 2 MG IVP (04:00)
[2020-02-08] MEDS: piperacillin-tazobactam 3.375 GM in sodium chloride 0.9% (plus) 50 ML IV ×3 (05:43→21:56)
[2020-02-08 05:55] LABS: Basophils % 0.1 %; Eosinophils # 0.5 10^3/uL (0.0-0.8); Eosinophils % 4.5 %; Hematocrit 33.8 % (37.0-47.0); Hemoglobin 11.2 g/dL (11.5-15.3); Lymphocytes # 1.3 10^3/uL (0.8-4.8); Lymphocytes % 12.8 %; Mean Corpuscular HGB Conc 33.1 g/dL (30.0-36.0); Mean Corpuscular Hemoglobin 31.3 pg (28.0-34.0); Mean Corpuscular Volume 94.4 fL (81-99); Mean Platelet Volume 10.4 fL (7.4-10.4); Monocytes # 0.9 10^3/uL (0.2-0.9); Monocytes % 8.6 %; Neutrophils # 7.6 10^3/uL (1.8-7.7); Neutrophils % 73.4 %; Nucleated Red Blood Cells % 0 %; Platelet Count 90 10^3/cmm (130-400); Red Blood Count 3.58 10^6/uL (4.1-5.3); White Blood Count 10.3 10^3/uL (4.0-10.0)
[2020-02-08 06:14] LABS: Alanine Aminotransferase 16 U/L (0-33); Albumin Level 2.4 g/dL (3.5-5.2); Alkaline Phosphatase 45 IU/L (35-105); Anion Gap 12.6 (5-19); Aspartate Amino Transferase 47 U/L (0-32); Blood Urea Nitrogen 19 mg/dL (8-23); Carbon Dioxide 23 mmol/L (22-29); Chloride 102 mmol/L (98-107); Globulin 3.2 g/dL (1.3-4.6); Glomerular Filtration Rate 55.3 mL/min (90-130); Glucose 98 mg/dL (65-115); Osmolality Calculated 274 mOsm/kg (285-295); Potassium 3.6 mmol/L (3.5-5.1); Sodium 134 mmol/L (136-145); Total Bilirubin 2.6 mg/dL (0.15-1.2); Total Protein 5.6 g/dL (6.6-8.7)
[2020-02-08 06:19] LABS: Lipase 91 U/L (13-60)
--- NOTE | 2020-02-08 09:10 | PC.SOCIAL ---
IMM Page 2 of IMM given to patient. She verbalizes understanding. Initialed, dated, and timed and placed in chart.
[2020-02-08] MEDS: pantoprazole 40 mg SDV IVP (10:01)
--- NOTE | 2020-02-08 10:23 | CT_ITS ---
WS: [id number] CT ABDOMEN PELVIS TECHNIQUE: Noncontrast CT of the abdomen and pelvis with coronal and sagittal reformatted images. CLINICAL INFORMATION: Abdominal pain COMPARISON: MRCP February 04, 2020 DLP: 1146.[address] scans at [facility] use at least one of these dose optimization techniques: automat ed exposure control; mA and/or kV adjustment per patient size (includes targeted exams where dose is matched to clinical indication); or iterative reconstruction. FINDINGS: Cirrhotic configuration to the liver. Perihepatic and perisplenic ascites. A few tiny gallstones with fluid distention of the gallbladder. Fluid in the gallbladder fossa likely due to hepatic disease. A gain seen are inflammatory changes and edema about the pancreas consistent with acute pancreatitis si milar to the recent MRI. No drainable fluid collections. Small left pleural effusion with consolidati ve atelectasis left lung base. Tiny right pleural effusion. Tiny pericardial effusion. Mesenteric edema with diffuse body wall anasarca. Adrenal glands are normal. No hydronephrosis. Nisa l gastroesophageal junction. Small fat-containing umbilical hernia. Diverticulosis. No evidence of acute diverticulitis. Colon is decompressed. Moderate amount of ascite s in the pelvis. No periaortic lymphadenopathy. Postoperative changes pedicle screw fixation L5-S1 wi th slight anterolisthesis L5 on S1. CT/CT abdomen pelvis wo con [id number] IMPRESSION: 1. 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 Moderate amount of ascites in the pelvis. 2. Stable findings of pancreatitis. No drainable fluid collections. 3. Fluid distention of the gallbladder with a few tiny gallstones. Fluid in th e gallbladder fossa likely due to hepatic disease. 4. Diffuse body wall anasarca and mesenteric edema. 5. Small left pleural effusion with consolidative atelectasis left lung base w ith air bronchograms. Tiny right pleural effusion. 6. Small pericardial effusion.
--- NOTE | 2020-02-08 10:32 | PM.PN ---
Subjective Subjective: Interval history: Patient received multiple morphine doses last night for bilateral flank pains and her chronic back pain mostly and not as much for abdominal pain. This morning although reports after she had oral intake she developed 8 out of 10 epigastric area pain. Denies shortness of breath or chest pain but did develop some oxygen desaturation with several morphine last night and was placed on 2 L by nasal cannula. She feels bloated. She is passing gas and had bowel movement. Reports that she is getting less pain with ambulation. Her lipase is down to 91. She is concerned that her flank pains is secondary to urinary tract infection. She thinks that her left flank pain and left upper abdominal pain are connected. Denies fever or chills. Vitals/I&O/Wt Last Vital Signs Temp 99.3 F 02/08/20 07:58 Pulse 84 02/08/20 10:05 Resp 16 02/08/20 10:05 BP 153/84 02/08/20 07:58 Pulse Ox 94 02/08/20 10:05 02/07/20 02/08/20 02/08/20 22:59 06:59 14:59 Intake Total 1916.667 / 2963.334 1050 / 4013.334 1000 / 1000 Output Total 50 / 50 Balance 1866.667 / 2913.334 1050 / 3963.334 1000 / 1000 Physical Exam Const: COMMON NORMALS: no apparent distress and oriented x3 Resp: COMMON NORMALS: normal respiratory effort and clear to auscultation bilaterally AUSCULTATION: clear to auscultation bilaterally Cardio: COMMON NORMALS: regular rate, regular rhythm and S2 normal heart sound RATE: regular rate RHYTHM: regular rhythm HEART SOUNDS: S2 normal OTHER: No lower extremity edema GI: COMMON NORMALS: normal to inspection, nondistended, normoactive bowel sounds and soft to palpation PALPATION: Yes soft and Yes tender (Mostly upper abdomen) Neuro: COMMON NORMALS: oriented x3 and no focal motor deficits Data : 02/08/20 05:42 02/08/20 05:42 A&P Assessment and plan (1) Acute pancreatitis: Status: Resolved Qualifiers: Acute pancreatitis complication: unspecified Pancreatitis type: biliary Qualified Code(s): K85.10 - Biliary acute pancreatitis without necrosis or infection (2) Cholecystitis with cholelithiasis: Status: Resolved Qualifiers: Biliary obstruction: without biliary obstruction Cholecystitis acuity: acute Cholelithiasis location: gallbladder Qualified Code(s): K80.00 - Calculus of gallbladder with acute cholecystitis without obstruction Additional A&P Information Gallstone induced acute pancreatitis without signs of cholangitis Cholelithiasis induced cholecystitis without ductal obstruction Acute kidney injury secondary to dehydration: Anticipating improvement with hydration Hypertension PLAN: Will obtain CT scan of abdomen/pelvis. Discontinue morphine and change to [place]. Encouraged ambulation. Hold diet as patient reports severe pain. Continue fluids but decrease to 75 mL/h DVT prophylaxis: Heparin Full code Attestations Medical Necessity Statement*: Patient with acute gallstone pancreatitis requires close inpatient monitoring and treatment Coding Level of Care Code Acute Landscape Crew Leader for [facility] Diagnoses Acute pancreatitis K85.10 Acute pancreatitis complication: unspecified Pancreatitis type: biliary Cholecystitis with cholelithiasis K80.00 Biliary obstruction: without biliary obstruction Cholecystitis acuity: acute Cholelithiasis location: gallbladder
--- NOTE | 2020-02-08 10:55 | PC.CHAP ---
Pastoral Care Encounter/Spiritual Assessment Type of Contact [] Declined recovery operator helper visit [] Patient/Family/Request visit [] Outpatient visit [] Follow-up visit [] Physician referral [] Code/Alert [x] Routine visit [] Staff referral [] Actively dying [] Patient sleeping [] Family support [] [] Out of room [] Palliative care [] [x] Receiving care in room [] Pre-surgical visit [] Trauma [] Long length of stay [] ICU visit [] Other: Relational/Emotional Strength [x] Patient feels connected with others/family/visitors/staff [] Distress [] Loneliness/isolation [] Abandonment Spirituality of Patient [x] Person of Radha [] Attends Church of their Radha [x] Believes in Prayer [] Reads Bible or Denominational materials [] There are Spiritual issues to be addressed Central Office Installer Interventions [x] Prayer [x] Active listening [x] Non-anxious presence [x] Spiritual/emotional support [] Crisis/trauma care [x] Spiritual counseling [] Bereavement support [] Provided bereavement packet [] Provided Bible/devotional materials [] Provided toy/stuffed animal, coloring book to patient or family member [] Provided Communion [] Anointing/[place] [] Salvation [x] Completed spiritual assessment [] Other: Impact on Illness or Injury [] Angry [] Fearful [] Anxious [] Often cries [x] Exhaustion [x] Unable to work [] Unable to attend pentecostal [] Unable to walk/stand [] Unable to read [x] Unable to drive [] Unable to eat/drink [] Unable to sleep [] Unable to be with family [] Patient intubated [] Other: Summary Shortness of breath, dealing with a galblader, dealing with heart blood Pressure, has possitive attitude wants to go home Time spent with patient 10 mins
[2020-02-08 13:19] LABS: Bacteria Urine 1+; Bilirubin Urine 1+ (NEGATIVE); Blood Urine Neg (Negative); Glucose Urine UA Norm (Normal); Ketones Urine Negative (Negative); Leukocyte Esterase Urine 1+ (Negative); Nitrate Urine Negative (Negative); Protein Urine Neg (Negative); Specific Gravity, Urine 1.015 (1.005-1.030); Squamous Epithelial Cell Urine 15-25 (0-5); Urine Appearance Clear (CLEAR); Urine Color Amber (Yellow); Urobilinogen Urine 1 mg/dL (Negative)
[2020-02-08 13:20] LABS: Add Urine Culture? Yes
[2020-02-08] MEDS: lactated ringers 1,000 ML 75 ML IV (19:26)
[2020-02-08] MEDS: HYDROcodone-acetaminophen 5-325 mg Tablet 1 TAB PO (22:02)
[2020-02-08] MEDS: ondansetron 2 mg/ML SDV 2 mL 4 MG IVP (22:05)
[2020-02-08 22:53] LABS: pH Urine 5 (5-7)
[2020-02-09] VITALS (7 sets, daily range): BP systolic 125–178; BP diastolic 70–85; PULSE 70–92; RESP 18–24; TEMP 36.3–37; O2SAT 91–95
[2020-02-09] MEDS: heparin 5,000 unit/mL INJ 1 mL 5000 UNIT SUBCUT ×2 (02:49→17:39)
[2020-02-09 04:13] LABS: Basophils % 0.1 %; Eosinophils # 0.3 10^3/uL (0.0-0.8); Hematocrit 33.6 % (37.0-47.0); Hemoglobin 11.2 g/dL (11.5-15.3); Lymphocytes # 1.3 10^3/uL (0.8-4.8); Lymphocytes % 13.7 %; Mean Corpuscular HGB Conc 33.3 g/dL (30.0-36.0); Mean Corpuscular Hemoglobin 30.9 pg (28.0-34.0); Mean Corpuscular Volume 92.8 fL (81-99); Mean Platelet Volume 10.4 fL (7.4-10.4); Monocytes % 10.5 %; Neutrophils # 6.9 10^3/uL (1.8-7.7); Neutrophils % 71.8 %; Nucleated Red Blood Cells % 0 %; Platelet Count 103 10^3/cmm (130-400); Red Blood Count 3.62 10^6/uL (4.1-5.3); White Blood Count 9.6 10^3/uL (4.0-10.0)
[2020-02-09 04:21] LABS: Alanine Aminotransferase 16 U/L (0-33); Albumin Level 2.3 g/dL (3.5-5.2); Alkaline Phosphatase 49 IU/L (35-105); Anion Gap 14.7 (5-19); Aspartate Amino Transferase 50 U/L (0-32); Blood Urea Nitrogen 17 mg/dL (8-23); Calcium 7.4 mg/dL (8.5-10.5); Carbon Dioxide 22 mmol/L (22-29); Chloride 103 mmol/L (98-107); Creatinine Clr Calc Pharmacy 64.0582; Globulin 3.5 g/dL (1.3-4.6); Glomerular Filtration Rate 62.5 mL/min (90-130); Glucose 100 mg/dL (65-115); Osmolality Calculated 278 mOsm/kg (285-295); Potassium 3.7 mmol/L (3.5-5.1); Sodium 136 mmol/L (136-145); Total Bilirubin 2.6 mg/dL (0.15-1.2); Total Protein 5.8 g/dL (6.6-8.7)
[2020-02-09 04:26] LABS: Lipase 61 U/L (13-60)
[2020-02-09] MEDS: lactated ringers 1,000 ML 75 ML IV (05:31)
[2020-02-09] MEDS: piperacillin-tazobactam 3.375 GM in sodium chloride 0.9% (plus) 50 ML IV ×3 (05:31→21:50)
[2020-02-09] MEDS: pantoprazole 40 mg SDV IVP (09:15)
[2020-02-09 14:31] LABS: Creatine Phosphokinase 241 U/L (26-192); Lactate Dehydrogenase 471 U/L (135-214); Total Bilirubin 2.6 mg/dL (0.15-1.2)
[2020-02-09 14:32] LABS: INR 1.36 (0.8-1.2)
[2020-02-09 14:33] LABS: Partial Thromboplastin Time 38.9 SECONDS (23.9-36.7)
[2020-02-09 14:43] LABS: Hepatitis A Antibody IgM. Non-Reactive (Nonreactive); Hepatitis B Core IgM Non-Reactive (Nonreactive); Hepatitis B Surface Antigen. Non-Reactive (Nonreactive); Hepatitis C Virus Antibody Non-Reactive (Nonreactive)
--- NOTE | 2020-02-09 15:43 | P.PN_ITS ---
Subjective Subjective: Interval history: Patient reports overall getting better. Reports that her abdominal pain is now 3 out of 10 but now she has exacerbation of her chronic back pain, mid lower. Tolerates clear liquid diet well. Her white blood cell count normalized. Platelets slightly improved and lipase is down to 61. Patient reports that she see GI specialist in [place]. She had liver biopsy performed and was told that she has nonalcoholic fatty liver disease. She denies drinking any alcohol or using any illicit drugs. She is non-smoker. She does not see her primary care physician regularly as recommended. She appears to have compliance issues. She told me that if she is discharged home she is not going to follow-up with Dr. Guerrero for surgery because that is how s he is. I had extensive discussion regarding importance of medical compliance. We have discussed the need for cholecystectomy as she will be at risk for recurrent pancreatitis. Patient voiced understanding. Patient initially voiced that she wants to go to nursing facility for rehabilitation. Patient had physical therapy and walked without significant difficulty and was deemed safe to be dismissed home with home exercises. Vitals/I&O/Wt Last Vital Signs Temp 98.4 F 02/09/20 15:26 Pulse 75 02/09/20 15:26 Resp 18 02/09/20 15:26 BP 125/70 02/09/20 15:26 Pulse Ox 91 02/09/20 15:26 02/09/20 02/09/20 02/09/20 06:59 14:59 22:59 Intake Total 806.25 / 4116.25 583.75 / 583.75 Output Total 400 / 500 Balance 406.25 / 3616.25 583.75 / 583.75 Physical Exam Const: COMMON NORMALS: no apparent distress and oriented x3 Resp: COMMON NORMALS: normal respiratory effort and clear to auscultation bilaterally AUSCULTATION: clear to auscultation bilaterally Cardio: COMMON NORMALS: regular rate, regular rhythm and S2 normal heart sound RATE: regular rate RHYTHM: regular rhythm HEART SOUNDS: S2 normal OTHER: No lower extremity edema GI: COMMON NORMALS: normal to inspection, nondistended, normoactive bowel sounds and soft to palpation PALPATION: Yes soft and Yes tender (Mostly upper abdomen but overall much improved) Neuro: COMMON NORMALS: oriented x3 and no focal motor deficits Data : 02/09/20 03:50 02/09/20 03:50 Micro: Microbiology 02/08/20 12:55 Urine Culture - Preliminary Urine,Clean Catch A&P Assessment and plan (1) Acute pancreatitis: Status: Resolved Qualifiers: Acute pancreatitis complication: unspecified Pancreatitis type: biliary Qualified Code(s): K85.10 - Biliary acute pancreatitis without necrosis or infection (2) Cholecystitis with cholelithiasis: Status: Resolved Qualifiers: Biliary obstruction: without biliary obstruction Cholecystitis acuity: acute Cholelithiasis location: gallbladder Qualified Code(s): K80.00 - Calculus of gallbladder with acute cholecystitis without obstruction Additional A&P Information Gallstone induced acute pancreatitis without signs of cholangitis Cholelithiasis induced cholecystitis without ductal obstruction Acute kidney injury secondary to dehydration: Improved Hypertension Nonalcoholic fatty liver disease. Thrombocytopenia. Appears to be chronic secondary to liver disease PLAN: Discontinue IV fluids. Advance diet as tolerated and if she improves we could likely be able to dismiss her home tomorrow. Patient to present back on Friday for cholecystectomy. DVT prophylaxis: Heparin Full code Attestations Medical Necessity Statement*: Patient with acute pancreatitis requires close inpatient monitoring and treatment until deemed safe for discharge. Coding Level of Care Code Acute People Greeter for [facility] Diagnoses Acute pancreatitis K85.10 Acute pancreatitis complication: unspecified Pancreatitis type: biliary Cholecystitis with cholelithiasis K80.00 Biliary obstruction: without biliary obstruction Cholecystitis acuity: acute Cholelithiasis location: gallbladder
[2020-02-10] VITALS: BP 152/80; PULSE 80; RESP 18; TEMP 36.6; O2SAT 96
[2020-02-10] MEDS: heparin 5,000 unit/mL INJ 1 mL 5000 UNIT SUBCUT (02:53)
[2020-02-10 04:00] VITALS: BP 152/83; PULSE 73; RESP 16; O2SAT 92
[2020-02-10 05:04] LABS: Basophils % 0.2 %; Eosinophils # 0.3 10^3/uL (0.0-0.8); Eosinophils % 2.4 %; Hematocrit 32.4 % (37.0-47.0); Lymphocytes # 1.1 10^3/uL (0.8-4.8); Lymphocytes % 10.5 %; Mean Corpuscular Hemoglobin 31.1 pg (28.0-34.0); Mean Corpuscular Volume 91.5 fL (81-99); Mean Platelet Volume 10.2 fL (7.4-10.4); Monocytes # 1.1 10^3/uL (0.2-0.9); Monocytes % 10.1 %; Neutrophils # 8.1 10^3/uL (1.8-7.7); Nucleated Red Blood Cells % 0 %; Platelet Count 116 10^3/cmm (130-400); Red Blood Count 3.54 10^6/uL (4.1-5.3); Red Cell Distribution Width 14.9 % (12.1-15.1); White Blood Count 10.8 10^3/uL (4.0-10.0)
[2020-02-10 05:23] LABS: Alanine Aminotransferase 17 U/L (0-33); Albumin Level 2.4 g/dL (3.5-5.2); Alkaline Phosphatase 58 IU/L (35-105); Anion Gap 14.6 (5-19); Aspartate Amino Transferase 52 U/L (0-32); Blood Urea Nitrogen 18 mg/dL (8-23); Calcium 7.7 mg/dL (8.5-10.5); Carbon Dioxide 23 mmol/L (22-29); Chloride 103 mmol/L (98-107); Creatinine Clr Calc Pharmacy 64.0582; Globulin 3.4 g/dL (1.3-4.6); Glomerular Filtration Rate 62.5 mL/min (90-130); Glucose 107 mg/dL (65-115); Lipase 158 U/L (13-60); Osmolality Calculated 281 mOsm/kg (285-295); Potassium 3.6 mmol/L (3.5-5.1); Sodium 137 mmol/L (136-145); Total Bilirubin 2.1 mg/dL (0.15-1.2); Total Protein 5.8 g/dL (6.6-8.7)
[2020-02-10] MEDS: piperacillin-tazobactam 3.375 GM in sodium chloride 0.9% (plus) 50 ML IV (05:49)
[2020-02-10 08:00] VITALS: BP 152/82; PULSE 96; RESP 18; TEMP 36.7; O2SAT 90
[2020-02-10] MEDS: pantoprazole 40 mg SDV IVP (08:31)
--- NOTE | 2020-02-10 09:25 | PC.SOCIAL ---
IMM Updated Updated pt on Pg 2 IMM via phone. Pt verbally understands, no questions voiced. Signed, dated, & timed copy in chart.
--- NOTE | 2020-02-10 10:43 | P.DS_ITS ---
Discharge Providers Date of Admission: 02/05/20 01:18 Date of Discharge: February 10, 2020 Attending Provider at Admission: Latisha Palmer MD Attending Provider at Discharge: Jayesh Murphy MD Diagnoses at Discharge Discharge Diagnosis (1) Acute pancreatitis: Status: Resolved Qualifiers: Acute pancreatitis complication: unspecified Pancreatitis type: biliary Qualified Code(s): K85.10 - Biliary acute pancreatitis without necrosis or infection (2) Cholecystitis with cholelithiasis: Status: Resolved Qualifiers: Biliary obstruction: without biliary obstruction Cholecystitis acuity: acute Cholelithiasis location: gallbladder Qualified Code(s): K80.00 - Calculus of gallbladder with acute cholecystitis without obstruction (3) Gallstone pancreatitis: Status: Acute (4) Cholecystitis with cholelithiasis: Status: Acute Reason for Visit Reason for Visit: Reason For Visit: N/V Hospital Course Discharge Summary: Patient presented with abdominal pain and diagnosed with acute pancreatitis as well as cholecystitis and cholelithiasis. Patient was treated with IV fluids and Zosyn and gradually improved and this morning reports feeling much better and strong enough to be dismissed home. Reports that she has mild pain and able to tolerate oral intake well. She does not like the food served in the hospital but otherwise reports appetite getting better. Her platelets are gradually recovering. She was seen by Dr. Guerrero and plan to proceed with cholecystectomy on Friday. I will continue Levaquin and Flagyl for 7 more days for treatment of acute cholecystitis. Today patient reports that she is ambulated in the hallways without any difficulty. She denies any nausea. She denies shortness of breath or chest pain. She rates her abdominal pain as 3 out of 10 and it is much improved especially when she walks. She had bowel movement earlier today which was formed stool. Her lipase significantly improved. She has chronically elevated AST and bilirubin which is due to her chronic liver disease and she will follow- up with her GI specialist. I will prescribe 20 tablets of [place] to use as needed. Patient reports that her chronic low back pain is bothering her more than abdominal pain and she thinks that at home sleeping in her bed would improve it. I will discontinue hydrochlorothiazide for now but continue losartan. I doubt that medications played a role in patient's pancreatitis as it appears she had gallstone pancreatitis. Patient will keep blood pressure and heart rate log 3 times daily to present to primary care physician next visit for medication adjustment. Encouraged oral intake and drinking plenty of fluids. Physical Exam Const: COMMON NORMALS: no apparent distress and oriented x3 Resp: COMMON NORMALS: normal respiratory effort and clear to auscultation bilaterally AUSCULTATION: clear to auscultation bilaterally Cardio: COMMON NORMALS: regular rate, regular rhythm and S2 normal heart sound RATE: regular rate RHYTHM: regular rhythm HEART SOUNDS: S2 normal OTHER: No lower extremity edema GI: COMMON NORMALS: normal to inspection, nondistended, normoactive bowel sounds and soft to palpation PALPATION: Yes soft OTHER: Minimally tender mostly in epigastric area. Neuro: COMMON NORMALS: oriented x3 and no focal motor deficits Discharge Data Data Completed and Pending: Completed Studies During Hospitalization Category Date Time Status CT abdomen pelvis wo con [id number] Rout ine Cat Scan 02/08/20 10:23 Completed MR MRCP [id number] Urg ent MRI 02/04/20 22:28 Completed US gall bladder 7 [id number] Urgent Ultrasound 02/04/20 21:13 Completed Pending at discharge Category Date Time Status Ceruloplasmin Rou xavier Lab 02/09/20 13:46 Stop Req Complete Blood Co unt w/Auto AM LABS Lab 02/11/20 04:00 Ordered Complete Blood Co unt w/Auto AM LABS Lab 02/12/20 04:00 Ordered Comprehensive Met abolic Panel AM LA BS Lab 02/11/20 04:00 Ordered Comprehensive Met abolic Panel AM LA BS Lab 02/12/20 04:00 Ordered Lipase AM LABS Lab 02/11/20 04:00 Ordered Labs from last 24 hours 02/10/20 02/10/20 02/09/20 04:27 04:27 13:46 WBC 10.8 H RBC 3.54 L Hgb 11.0 L Hct 32.4 L MCV 91.5 MCH 31.1 MCHC 34.0 RDW 14.9 Plt Count 116 L MPV 10.2 Neut % (Auto) 75.0 Lymph % (Auto) 10.5 [place] % (Auto) 10.1 Eos % (Auto) 2.4 Baso % (Auto) 0.2 Reticulocyte % (Au to) Neut # (Auto) 8.1 H Lymph # (Auto) 1.1 [place] # (Auto) 1.1 H Eos # (Auto) 0.3 Baso # (Auto) 0.0 Nucleated RBC % (a uto) 0 Nucleated RBCs # 0.0 Haptoglobin PT INR APTT Sodium 137 Potassium 3.6 Chloride 103 Carbon Dioxide 23 Anion Gap 14.6 BUN 18 Creatinine 0.9 GFR Calculation 62.5 L Glucose 107 Calculated Osmolal ity 281 L Calcium 7.7 L Total Bilirubin 2.1 H Direct Bilirubin Indirect Bilirubin AST 52 H ALT 17 Alkaline Phosphata se 58 Lactate Dehydrogen ase Creatine Kinase Total Protein 5.8 L Albumin 2.4 L Globulin 3.4 Lipase 158 H Hepatitis A IgM Ab Non-reactive Hep Bs Antigen Non-reactive Hep B Core IgM Ab Non-reactive Hepatitis C Antibo dy Non-reactive ENA, Poly Interpre t 02/09/20 02/09/20 02/09/20 13:46 13:46 13:46 WBC RBC Hgb Hct MCV MCH MCHC RDW Plt Count MPV Neut % (Auto) Lymph % (Auto) [place] % (Auto) Eos % (Auto) Baso % (Auto) Reticulocyte % (Au to) 2.4500 Neut # (Auto) Lymph # (Auto) [place] # (Auto) Eos # (Auto) Baso # (Auto) Nucleated RBC % (a uto) Nucleated RBCs # Haptoglobin 42.0 PT 17.20 H INR 1.36 H APTT 38.9 H Sodium Potassium Chloride Carbon Dioxide Anion Gap BUN Creatinine GFR Calculation Glucose Calculated Osmolal ity Calcium Total Bilirubin 2.6 H Direct Bilirubin 1.30 H Indirect Bilirubin 1.30 AST ALT Alkaline Phosphata se Lactate Dehydrogen ase 471 H Creatine Kinase 241 H Total Protein Albumin Globulin Lipase Hepatitis A IgM Ab Hep Bs Antigen Hep B Core IgM Ab Hepatitis C Antibo dy ENA, Poly Interpre t 02/09/20 03:50 WBC RBC Hgb Hct MCV MCH MCHC RDW Plt Count MPV Neut % (Auto) Lymph % (Auto) [place] % (Auto) Eos % (Auto) Baso % (Auto) Reticulocyte % (Au to) Neut # (Auto) Lymph # (Auto) [place] # (Auto) Eos # (Auto) Baso # (Auto) Nucleated RBC % (a uto) Nucleated RBCs # Haptoglobin PT INR APTT Sodium Potassium Chloride Carbon Dioxide Anion Gap BUN Creatinine GFR Calculation Glucose Calculated Osmolal ity Calcium Total Bilirubin Direct Bilirubin Indirect Bilirubin AST ALT Alkaline Phosphata se Lactate Dehydrogen ase Creatine Kinase Total Protein Albumin Globulin Lipase Hepatitis A IgM Ab Hep Bs Antigen Hep B Core IgM Ab Hepatitis C Antibo dy ENA, Poly Interpre t Negative Vitals: Last Vital Signs Temp 98.0 F 02/10/20 08:00 Pulse 96 02/10/20 08:00 Resp 18 02/10/20 08:00 BP 152/82 02/10/20 08:00 Pulse Ox 90 02/10/20 08:00 Discharge Plan Discharge Patient Disposition: Home, Self-Care Condition: Stable Prescriptions: New hydrocodone-acetaminophen 5-325 mg Tablet 1 tab PO Q6H PRN (Reason: Moderate Pain) Qty: 20 RF: 0 levofloxacin 750 mg Tablet 750 mg PO DAILY Qty: 7 RF: 0 metronidazole 500 mg Tablet 500 mg PO TID Qty: 21 RF: 0 Protonix [address] for susp in packet 40 mg PO DAILY 28 Days RF: 0 Continued losartan 100 mg Tablet 100 mg PO DAILY RF: 0 Combigan 0.2-0.5 % Drops 1 drp ophthalmic (eye) BID RF: 0 Discontinued hydrochlorothiazide 25 mg Tablet 25 mg PO DAILY RF: 0 Discharge Orders: Discharge Order (Routine); Ordered 02/10/20 Ordered By: Jayesh Murphy Referrals: Padmini Cardenas APN [Referring] - 4-7 days Wallace Guerrero MD [Physician] - 4-7 days (Patient is scheduled for cholecystectomy on Friday to be performed by Dr. Guerrero.) Discharge Diet: Advance as tolerated Discharge Activity: Increase activity as tolerated Activity Restrictions/Additional Instructions: Please call your doctor or present to emergency department if your condition worsens or you develop diarrhea, lightheadedness, fatigue or see blood in your stool or black stool. Please keep blood pressure and heart rate log 3 times daily to present to primary care physician next visit for medication adjustment. Please drink plenty of fluids and gradually increase oral intake as tolerated. Please call your doctor or present to ER should you develop fever. Please follow-up with your GI specialist at [place] earliest possible. Discharge Attestations Time Spent in Discharge Care*: greater than 30 min Quality Metrics Clinical Quality Measures During this hospital stay, did patient experience: None Coding Level of Care Code Acute Service Desk Agent for Jedg Fwd Exam Detailed Diagnoses Acute pancreatitis K85.10 Acute pancreatitis complication: unspecified Pancreatitis type: biliary Cholecystitis with cholelithiasis K80.00 Biliary obstruction: without biliary obstruction Cholecystitis acuity: acute Cholelithiasis location: gallbladder Gallstone pancreatitis K85.10 Cholecystitis with cholelithiasis K80.10
[2020-02-10] MEDS: levoFLOXacin 750 mg Tablet PO (11:08)
[2020-02-10 11:26] VITALS: BP 138/81; PULSE 77; RESP 16; TEMP 36.7; O2SAT 93
[2020-02-10 13:36] LABS: Ceruloplasmin 30 mg/dL (18-53)
[2020-02-10 14:14] VITALS: BP 138/81; PULSE 77; RESP 16; TEMP 36.7; O2SAT 93
== END 2020-02-10 14:15 | disposition home or self-care (01) | DRG 439 ==
LOC: ER 02-05 01:21 → MEDSURG 02-05 01:46
PROVIDERS: Emergency Medicine; Admitting Provider Internal Medicine; Emergency Provider Emergency Medicine; Visit Provider Internal Medicine
DX: K85.10 Biliary acute pancreatitis without necrosis or infection (principal); K80.00 Calculus of gallbladder with acute cholecystitis without obstruction; N17.9 Acute kidney failure, unspecified; I10 Essential (primary) hypertension; E78.5 Hyperlipidemia, unspecified
CPT/HCPCS: 12345; 36415; 74176; 74181; 76705; 80053; 80074; 81001; 82247; 82248; 82390; 82550; 83010; 83605; 83615; 83690; 84478; 85025; 85045; 85610; 85730; 86880; 87086; 94760; 94762; 96372; 96374; 96375; 97161; 97530; 99283; C9113; J1644; J1885; J2270; J2405; J2543; J3010; J7030

== ENCOUNTER 2020-02-14 09:59 | Outpatient (CLI) | payer MEDICARE, SELFPAY ==
[2020-02-14 10:23] LABS: Basophils % 0.2 %; Eosinophils # 0.3 10^3/uL (0.0-0.8); Eosinophils % 2.5 %; Hematocrit 34.4 % (37.0-47.0); Hemoglobin 11.7 g/dL (11.5-15.3); Lymphocytes # 1.3 10^3/uL (0.8-4.8); Lymphocytes % 9.5 %; Mean Corpuscular Hemoglobin 31.5 pg (28.0-34.0); Mean Corpuscular Volume 92.7 fL (81-99); Mean Platelet Volume 9.4 fL (7.4-10.4); Monocytes % 7.7 %; Neutrophils # 10.4 10^3/uL (1.8-7.7); Neutrophils % 79.1 %; Nucleated Red Blood Cells % 0 %; Platelet Count 161 10^3/cmm (130-400); Red Blood Count 3.71 10^6/uL (4.1-5.3); Red Cell Distribution Width 16.7 % (12.1-15.1); White Blood Count 13.1 10^3/uL (4.0-10.0)
[2020-02-14 10:37] LABS: Alanine Aminotransferase 18 U/L (0-33); Albumin Level 2.5 g/dL (3.5-5.2); Alkaline Phosphatase 59 IU/L (35-105); Amylase 232 U/L (28-100); Anion Gap 11.5 (5-19); Aspartate Amino Transferase 47 U/L (0-32); Blood Urea Nitrogen 19 mg/dL (8-23); Carbon Dioxide 23 mmol/L (22-29); Chloride 105 mmol/L (98-107); Globulin 3.3 g/dL (1.3-4.6); Glomerular Filtration Rate 40.9 mL/min (90-130); Glucose 91 mg/dL (65-115); Osmolality Calculated 278 mOsm/kg (285-295); Potassium 3.5 mmol/L (3.5-5.1); Sodium 136 mmol/L (136-145); Total Bilirubin 2.3 mg/dL (0.15-1.2); Total Protein 5.8 g/dL (6.6-8.7)
[2020-02-14 10:44] LABS: Lipase 661 U/L (13-60)
== END 2020-02-14 10:00 | disposition home or self-care (01) ==
LOC: LAB 10:06
PROVIDERS: Visit Provider Surgery
DX: K85.10 Biliary acute pancreatitis without necrosis or infection (principal)
CPT/HCPCS: 36415; 80053; 82150; 83690; 85025

== ENCOUNTER 2020-03-16 12:09 | Outpatient (CLI) | payer MEDICARE, SELFPAY ==
--- NOTE | 2020-03-16 12:16 | XR_ITS ---
WS: [id number] CHEST 2 VIEWS HISTORY: SOB COMPARISON: None available. Lungs: Lungs are clear. Small bilateral pleural effusions. LEFT is slightly greater than the RIGHT. Cardiac size: Normal. Mediastinum/Aorta: Normal mediastinum. Bones: Normal. XR/XR chest 2V* [id number] IMPRESSION: Small bilateral pleural effusions, LEFT greater than RIGHT.
== END 2020-03-16 12:10 | disposition home or self-care (01) ==
LOC: RAD 12:13
PROVIDERS: PCP Nurse Practitioner Family; Visit Provider Nurse Practitioner Family
DX: R06.02 Shortness of breath (principal); J90 Pleural effusion, not elsewhere classified
CPT/HCPCS: 71046

== ENCOUNTER → 2020-03-30 09:17 | Outpatient (BNVA) | payer MEDICARE, SELFPAY | PROVIDERS: PCP Nurse Practitioner Family; Visit Provider Surgery | DX: K74.60 Unspecified cirrhosis of liver (principal); B19.20 Unspecified viral hepatitis C without hepatic coma | CPT/HCPCS: 80053; 82105; 82150; 85025 ==

== ENCOUNTER 2020-04-04 07:55 | Outpatient (CLI) | payer MEDICARE, SELFPAY ==
[2020-04-04] MEDS: iohexol 300 mg/mL 100 mL Btl IV (09:21)
[2020-04-04] MEDS: iohexol 300 mg/mL 50 mL Btl PO (09:21)
--- NOTE | 2020-04-04 09:30 | CT_ITS ---
WS: [id number] CT ABDOMEN AND PELVIS WITH CONTRAST HISTORY: gallstone pancreatitis TECHNIQUE: Imaging performed of the abdomen and pelvis with IV contrast. Single phase imaging of the abdomen. Coronal and sagittal reformats are submitted. All CT scans at [facility] use at least one of these dose optimization techniques: automated exposure control; mA and/or kV adjustment per patient size (includes targeted exams where dose is matched to clinical indication); or iterativ e reconstruction. IV CONTRAST: Omnipaque 300; 95 mL IV. Oral contrast: Yes. DLP: 1230.3 mGycm COMPARISON: 02/08/2020 Lower thorax: Chronic emphysematous changes at the lung bases. Small simple LEFT pleural effusion. Im proved aeration at the LEFT lung base with improving atelectasis. Heart is normal size. Unchanged latasha y small pericardial effusion. Small hiatal hernia. Liver/biliary system: Small shrunken liver with nodular surface. No bile duct dilatation. There are a few scattered subcentimeter hypodensities which may be nodules from cirrhosis. No discrete mass. Gallbladder: Normally distended gallbladder. Less distention as compared to the prior study. Gallston es are not as well seen today. Pancreas: Normal size pancreas with normal enhancement. There is a small amount of peripancreatic flu id. Improved pancreatitis as compared to the prior study. Spleen: Normal size spleen with adjacent ascites. Adrenal glands: Normal. Right kidney: Normal. Left kidney: Normal. Aorta: Mild atherosclerosis. Lymphadenopathy: None. Free fluid: Moderate to large amount of fluid within the abdomen and pelvis. Perihepatic, perisplenic and peripancreatic fluid. There is fluid along the lesser curvature of the stomach and surrounding t he pancreas. Diffuse mesenteric edema and mild anasarca. The fluid burden within the peritoneal cavit y has increased. The amount of anasarca has decreased. There are no focal fluid collections. GI tract: No GI tract obstruction. Abdominal wall: No hernia. Pelvis: Normal anteverted uterus. No pelvic masses. Depending ascites noted surrounding the uterus. U rinary bladder is not distended. Bones: Prior posterior lumbar fusion at L4-5. No osteoblastic or osteolytic disease. CT/CT abdomen pelvis w con* [id number] IMPRESSION: 1. Moderate progression of ascites since 02/08/2020. 2. Advanced changes of cirrhosis. 3. Small simple LEFT pleural effusion with improved aeration of the LEFT lower lobe. 4. Improved pancreatitis. 5. Cholelithiasis is not identified on today's examination. 6. No abscess or focal fluid collection. 7. Improved anasarca.
== END 2020-04-04 07:56 | disposition home or self-care (01) ==
LOC: RADWPI 08:00
PROVIDERS: Visit Provider Surgery
DX: K85.10 Biliary acute pancreatitis without necrosis or infection (principal); R18.8 Other ascites; K74.60 Unspecified cirrhosis of liver; J90 Pleural effusion, not elsewhere classified; K80.20 Calculus of gallbladder without cholecystitis without obstruction
CPT/HCPCS: 74177; Q9967

== ENCOUNTER 2020-04-12 12:10 | Outpatient (CLI) | payer MEDICARE, SELFPAY | END 2020-04-12 12:11 | disposition home or self-care (01) | LOC: LAB 12:13 | PROVIDERS: Visit Provider Surgery | DX: R19.7 Diarrhea, unspecified (principal) | CPT/HCPCS: 83630; 87177; 87209; 87493; 87506 ==

== ENCOUNTER → 2020-04-21 09:10 | Outpatient (BNVA) | payer MEDICARE, SELFPAY | PROVIDERS: Visit Provider Nurse Practitioner Family | DX: E78.5 Hyperlipidemia, unspecified (principal); I10 Essential (primary) hypertension | CPT/HCPCS: 80053; 80061; 85025 ==

== ENCOUNTER → 2020-05-25 16:06 | Outpatient (BNVA) | payer MEDICARE, SELFPAY | PROVIDERS: Visit Provider Internal Medicine | DX: K85.10 Biliary acute pancreatitis without necrosis or infection (principal); R60.1 Generalized edema | CPT/HCPCS: 80053 ==

== ENCOUNTER 2020-06-22 08:17 | Outpatient (CLI) | payer MEDICARE, SELFPAY ==
[2020-06-22] MEDS: iohexol 300 mg/mL 50 mL Btl PO (09:33)
--- NOTE | 2020-06-22 10:00 | CT_ITS ---
WS: [id number] EXAM: CT OF THE ABDOMEN AND PELVIS WITH CONTRAST DATE OF EXAMINATION: 06/22/2020, 1003 hours COMPARISON: Prior CT from 04/04/2020 HISTORY: 69 years old with abdominal pain. Nonalcoholic fatty liver disease. Fluid retention. History of gallb ladder attack in February per patient report. Complaining of mid abdominal pain intermittently after eat ing. Prior back surgery. TECHNIQUE: Transaxial computed tomography images obtained through the abdomen and pelvis utilizing 95 mL of Omni paque 300 IV contrast with images acquired in the portal phase. Images viewed in multiple windows wit h reconstructions. DLP: 1175.[address] scans at [facility] use at least one of these dose optimization techniques: automat ed exposure control; mA and/or kV adjustment per patient size (includes targeted exams where dose is matched to clinical indication); or iterative reconstruction. FINDINGS: The right lung base is clear. Left pleural fluid has regressed but a small amount of fluid remains. T here is minimal compression atelectasis left lower lobe and lingula at the level of the diaphragm. He art size is normal. Aorta is normal in caliber with minimal peripheral calcified plaque. Lumen opacif ies normally. The liver is small in size with an irregular serosal surface consistent with advanced cirrhosis. Enha ncement is the most part normal. There is a low density lesion in the right lower liver the level of the diaphragm seen image 10 of 97 on the axial dataset. Noted on image 28 of 58 on the coronal recons truction Also noted on the prior examination from 04/04/2020. Not seen on the most recent CT exam with contrast from 2013 however. The cirrhosis has also developed in the interim. This will need to be fol lowed/evaluated. Currently this considered too small to characterize but a small solid mass lesion wi thin the cirrhotic liver needs to be considered. MRI of the liver with and without IV contrast recomm ended. Gallbladder is normally distended. Multiple stones in the gallbladder lumen are seen. No bilia ry dilatation is seen. The portal vein is patent. Varices are seen out of the falciform ligament cherelle on. Spleen is normal in size and enhancement. Pancreas is normal in appearance. Adrenal glands are normal in appearance. Both kidneys enhance normally without evidence of solid mass lesion. No obstructive uropathy. 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 These extend into the area of t he gastrohepatic ligament region as well as into the splenic hilum. I also suspect diffuse splenorena l varices on the left. The stomach is full of oral contrast otherwise normal appearance. There is def initely edema within the duodenal and proximal jejunal small bowel fairly nonspecific. Possibly relat ed to venous congestion. No pneumatosis is seen. The colon is normal in caliber. Diverticulosis hale es are demonstrated. Heart to evaluate for pericolonic inflammatory response secondary to the amount of ascites. No intraperitoneal or retroperitoneal adenopathy or mass is identified. Minute in size umbilical hernia containing a small amount of fluid. No inguinal hernia is seen. The bladder is decompressed for the most part otherwise unremarkable Bone density is normal. Scattered degenerative changes in the spine. Old postop surgical changes and fusion L4-5 level. The amount of ascites within the abdomen has slightly increased in the interim. CT/CT abdomen pelvis w con* [id number] IMPRESSION: Slightly worsening volume of abdominal ascites. Persistent findings of a cirrho tic shrunken liver. New area of low attenuation in the dome of the liver in the right lobe of the liver segment 8. Also seen in 04/04/2020. Not seen on the prio r 2014 CT with contrast. Further evaluation for possible developing neoplasm wi thin the liver versus cysts versus regenerative nodule needs to be obtained. MR I of the liver with and without contrast recommended with attention to this reg ion. Findings of varices as described. Cholelithiasis without findings of cholecystitis. Appears to be some slight thickening of the proximal small bowel mucosa. Presum ably related to venous congestion. No obstructive uropathy. Other nonemergent findings as described in the body of the report.
[2020-06-22] MEDS: iohexol 300 mg/mL 100 mL Btl IV (10:04)
== END 2020-06-22 08:18 | disposition home or self-care (01) ==
LOC: RADWPI 08:22
PROVIDERS: PCP Nurse Practitioner Family; Visit Provider Surgery
DX: R10.9 Unspecified abdominal pain (principal); K75.81 Nonalcoholic steatohepatitis (NASH); R18.8 Other ascites; K80.20 Calculus of gallbladder without cholecystitis without obstruction
CPT/HCPCS: 74177; Q9967

== ENCOUNTER 2020-07-10 16:30 | Emergency (ER) | payer MEDICARE, SELFPAY ==
[2020-07-10 16:37] VITALS: BP 143/87; PULSE 64; RESP 18; TEMP 36.3; O2SAT 97; BMI 23.6
[2020-07-10 16:46] VITALS: BP 143/87; PULSE 61; RESP 20; O2SAT 99
--- NOTE | 2020-07-10 16:58 | W.ED.ABDPA2 ---
Documented by User: Mac Flores DO 07/12/20 07:46 HPI - Abdominal Pain General: Chief Complaint: Abdominal Pain Stated Complaint: abd pain Time Seen by Provider: 07/10/20 16:40 History of Present Illness: HPI narrative: 69-year-old female with a history of Andrade presents emergency room complaining of upper abdominal pain. She has had this intermittently for the last year she had asymptomatic cholelithiasis has had an MRCP CTs and abdominal ultrasounds all of which have been unremarkable. Has not shown any sign of obstruction either to her lab work. She has not had any vomiting or diarrhea she is been very nauseous. She denies any hematemesis or coffee-ground emesis no dysuria urgency or frequency MD elicited complaint: abdominal pain Pertinent past history: other (Nonalcoholic hepato-steatosis) Onset (ago): day(s) Pain Consistency: constant Location: Epigastric, LUQ and RUQ Severity: moderate Quality: cramping and aching Radiation: none Migration to: no migration Exacerbating factors: nothing Relieving factors: nothing Associated Symptoms: Reports bloating and GI cramping; Denies belching, change in bowel habits, change in stool character, chills, coffee ground emesis, constipation, diarrhea, dyspepsia, dysuria, excessive flatus, fever(s), heartburn, hematochezia, hematuria, hematemesis, fecal incontinence, loose stools, melena, nausea, poor appetite, syncope and vomiting Review of Systems Const: Denies: fever(s) or chills ENMT: Denies: throat pain, ear or mastoid pain, nasal discharge or nasal congestion Card: Denies: syncope Resp: Denies: dyspnea, productive cough or non-productive cough GI: Reports: bloating and GI cramping; Denies: nausea, vomiting, hematemesis, coffee ground emesis, heartburn, diarrhea, constipation, belching, excessive flatus, fecal incontinence, change in bowel habits, change in stool character, hematochezia or melena : Denies: dysuria or hematuria Skin/Breast: Denies: rash or pruritus [facility] [place] [facility] PFSH: Medical History Cavernous hemangioma of liver Dyslipidemia Fibrocystic breast determined by biopsy Gallstone pancreatitis Hypertension ANDRADE (nonalcoholic steatohepatitis) Spondylolisthesis Surgical History History of liver biopsy History of right breast biopsy Benign 2005 Previous back surgery L4-L5 ildefonso placement S/P thyroid biopsy Nonmalignant nodule Family History Denies family history of Diabetes Clotting disorder Dementia Chronic kidney disease (CKD) Anesthesia complication Bleeding disorder Cancer Social History Smoking and tobacco status: never smoked Alcohol intake: never Household members: spouse Housing: House History of recent travel: No Physical Exam Const: COMMON NORMALS: no acute distress GENERAL APPEARANCE: cooperative and comfortable ORIENTATION/CONSCIOUSNESS: Yes awake, Yes oriented to person, Yes oriented to place and Yes oriented to time HENMT: COMMON NORMALS: normocephalic, atraumatic and hearing grossly normal bilaterally HEAD & SCALP: normocephalic and atraumatic Eye: COMMON NORMALS: Equal, round and reactive pupils present, EOMs intact bilaterally, conjunctivae normal and no scleral icterus CONJUNCTIVA: Yes conjunctivae normal PUPIL: Yes Equal, round and reactive pupils present Neck/C-Spine: COMMON NORMALS: full ROM, no lymphadenopathy, supple and no JVD Lymph: LYMPHATIC: no lymphadenopathy noted and no lymphedema noted Resp: COMMON NORMALS: normal respiratory effort, No retractions, No use of accessory muscles and clear to auscultation bilaterally AUSCULTATION: clear to auscultation bilaterally Cardio: COMMON NORMALS: no JVD, regular rate, regular rhythm and No murmurs present (Cardio) RATE: regular rate RHYTHM: regular rhythm GI: COMMON NORMALS: No hepatosplenomegaly present AUSCULTATION: Yes normoactive bowel sounds PALPATION: Yes Tenderness to palpation present (GI) (Epigastric upper abdominal pain), No Guarding due to palpation present (GI) and Yes No hepatosplenomegaly present Extremity: COMMON NORMALS: normal to inspection, capillary refill normal, no clubbing, cyanosis or edema, no calf tenderness and no pedal edema Neuro: SENSORIUM/ORIENTATION: Yes oriented to person, Yes oriented to place and Yes oriented to time Skin: COMMON NORMALS: no rashes or lesions noted GENERAL SKIN EXAM: no rashes or lesions noted Course Vital Signs: Vital signs: Vital Signs Temperature 97.3 F L 07/10/20 16:37 Pulse Rate 62 07/10/20 18:51 Respiratory Rate 18 07/10/20 18:51 Blood Pressure 138/73 07/10/20 18:51 Pulse Oximetry 99 07/10/20 18:51 MDM - Abdominal Pain MDM Narrative: Medical decision making narrative: Care transferred to Dr. Newman at change of shift. Please see his notes for definitive diagnosis and discharge planning Lab Data: Labs: Lab Results 07/10/20 07/10/20 07/10/20 Range/Units 16:50 16:50 16:50 WBC 5.3 (4.0-10.0) 10^3/ uL RBC 3.79 L (4.1-5.3) 10^6/u L Hgb 11.9 (11.5-15.3) g/dL Hct 35.1 L (37.0-47.0) % MCV 92.6 (81-99) fL MCH 31.4 (28.0-34.0) pg MCHC 33.9 (30.0-36.0) g/dL RDW 14.8 (12.1-15.1) % Plt Count 110 L (130-400) 10^3/c mm MPV 11.0 H (7.4-10.4) fL Neut % (Auto) 67.3 % Lymph % (Auto) 15.9 % [place] % (Auto) 8.1 % Eos % (Auto) 8.3 % Baso % (Auto) 0.2 % Neut # (Auto) 3.59 (1.8-7.7) 10^3/u L Lymph # (Auto) 0.9 (0.8-4.8) 10^3/u L [place] # (Auto) 0.4 (0.2-0.9) 10^3/u L Eos # (Auto) 0.4 (0.0-0.8) 10^3/u L Baso # (Auto) 0.0 (0.0-0.1) 10^3/u L Nucleated RBC % (a uto) 0 % Nucleated RBCs # 0.0 /100WBC PT 17.00 H (12.1-14.9) SECO NDS INR 1.33 H (0.8-1.2) APTT 37.8 H (23.9-36.7) SECO NDS Sodium 136 (136-145) mmol/L Potassium 4.4 (3.5-5.1) mmol/L Chloride 101 (98-107) mmol/L Carbon Dioxide 26 (22-29) mmol/L Anion Gap 13.4 (5-19) BUN 18 (8-23) mg/dL Creatinine 1.2 H (0.5-0.9) mg/dL GFR Calculation 44.8 L (90-130) mL/min Glucose 103 (65-115) mg/dL Calculated Osmolal ity 279 L (285-295) mOsm/k g Calcium 7.8 L (8.5-10.5) mg/dL Total Bilirubin 5.0 H (0.15-1.2) mg/dL AST 152 H (0-32) U/L ALT 63 H (0-33) U/L Alkaline Phosphata se 140 H (35-105) IU/L Ammonia (11-51) umol/L Total Protein 6.7 (6.6-8.7) g/dL Albumin 2.7 L (3.5-5.2) g/dL Globulin 4.0 (1.3-4.6) g/dL Lipase 3440 H (13-60) U/L Urine Color (Yellow) Urine Appearance (CLEAR) Urine pH (5-7) Ur Specific Gravit y (1.005-1.030) Urine Protein (Negative) Urine Glucose (UA) (Normal) Urine Ketones (Negative) Urine Blood (Negative) Urine Nitrate (Negative) Urine Bilirubin (NEGATIVE) Urine Urobilinogen (Negative) mg/dL Ur Leukocyte Kinza ase (Negative) Urine RBC (0-2) /hpf Urine WBC (0-5) /hpf Ur Squamous Epith Cells (0-5) Amorphous Sediment Urine Bacteria (NONE) Hyaline Casts Urine Mucus 07/10/20 07/10/20 Range/Units 16:50 17:04 WBC (4.0-10.0) 10^3/ uL RBC (4.1-5.3) 10^6/u L Hgb (11.5-15.3) g/dL Hct (37.0-47.0) % MCV (81-99) fL MCH (28.0-34.0) pg MCHC (30.0-36.0) g/dL RDW (12.1-15.1) % Plt Count (130-400) 10^3/c mm MPV (7.4-10.4) fL Neut % (Auto) % Lymph % (Auto) % [place] % (Auto) % Eos % (Auto) % Baso % (Auto) % Neut # (Auto) (1.8-7.7) 10^3/u L Lymph # (Auto) (0.8-4.8) 10^3/u L [place] # (Auto) (0.2-0.9) 10^3/u L Eos # (Auto) (0.0-0.8) 10^3/u L Baso # (Auto) (0.0-0.1) 10^3/u L Nucleated RBC % (a uto) % Nucleated RBCs # /100WBC PT (12.1-14.9) SECO NDS INR (0.8-1.2) APTT (23.9-36.7) SECO NDS Sodium (136-145) mmol/L Potassium (3.5-5.1) mmol/L Chloride (98-107) mmol/L Carbon Dioxide (22-29) mmol/L Anion Gap (5-19) BUN (8-23) mg/dL Creatinine (0.5-0.9) mg/dL GFR Calculation (90-130) mL/min Glucose (65-115) mg/dL Calculated Osmolal ity (285-295) mOsm/k g Calcium (8.5-10.5) mg/dL Total Bilirubin (0.15-1.2) mg/dL AST (0-32) U/L ALT (0-33) U/L Alkaline Phosphata se (35-105) IU/L Ammonia 23 (11-51) umol/L Total Protein (6.6-8.7) g/dL Albumin (3.5-5.2) g/dL Globulin (1.3-4.6) g/dL Lipase (13-60) U/L Urine Color Dark yellow (Yellow) Urine Appearance Sl hazy (CLEAR) Urine pH 5 (5-7) Ur Specific Gravit y 1.020 (1.005-1.030) Urine Protein Neg (Negative) Urine Glucose (UA) Norm (Normal) Urine Ketones 1+ H (Negative) Urine Blood Neg (Negative) Urine Nitrate Negative (Negative) Urine Bilirubin 2+ H (NEGATIVE) Urine Urobilinogen 4+ H (Negative) mg/dL Ur Leukocyte Kinza ase Trace H (Negative) Urine RBC 0-4 H (0-2) /hpf Urine WBC 5-10 H (0-5) /hpf Ur Squamous Epith Cells 15-25 H (0-5) Amorphous Sediment Not Reportable Urine Bacteria 1+ H (NONE) Hyaline Casts 5-10 H Urine Mucus Trace Discharge Plan Discharge Patient Disposition: Home Clinical Impression: ANDRADE (nonalcoholic steatohepatitis) Abdominal pain Qualifiers: Abdominal location: generalized Qualified Code(s): R10.84 - Generalized abdominal pain Condition: Stable Prescriptions: No Action timolol 0.25 % drops 1 drop ophthalmic (eye) BID RF: 0 furosemide 20 mg tablet 60 mg PO DAILY Qty: 90 RF: 3 hyoscyamine sulfate 0.125 mg tablet,disintegrating 0.125 mg PO QID PRN (Reason: dyspepsia) Qty: 30 RF: 3 losartan 100 mg tablet 100 mg PO DAILY Qty: 90 RF: 1 Combigan 0.2-0.5 % Drops 1 drp ophthalmic (eye) BID RF: 0 Discharge Orders: Discharge Order (Routine); Ordered 07/10/20 Ordered By: Henny Newman Referrals: Fátima Lilly FNP [Primary Care Provider] - Discharge Diet: Advance as tolerated Discharge Activity: Resume usual activity Patient Instructions: Abdominal Pain (ED) Discharge Date/Time: 07/10/20 18:51 Coding Level of Care Code ED Lumite Injector for Chg Fwd Exam Comprehensive Documented by User: Henny Newman MD 07/10/20 18:57 HPI - Abdominal Pain General: Chief Complaint: Abdominal Pain Stated Complaint: abd pain Time Seen by Provider: 07/10/20 16:40 PFSH ED PFSH: Medical History Cavernous hemangioma of liver Dyslipidemia Fibrocystic breast determined by biopsy Gallstone pancreatitis Hypertension ANDRADE (nonalcoholic steatohepatitis) Spondylolisthesis Surgical History History of liver biopsy History of right breast biopsy Benign 2005 Previous back surgery L4-L5 ildefonso placement S/P thyroid biopsy Nonmalignant nodule Family History Denies family history of Diabetes Clotting disorder Dementia Chronic kidney disease (CKD) Anesthesia complication Bleeding disorder Cancer Social History Smoking and tobacco status: never smoked Alcohol intake: never Household members: spouse Housing: House History of recent travel: No Course Vital Signs: Vital signs: Vital Signs Temperature 97.3 F L 07/10/20 16:37 Pulse Rate 62 07/10/20 18:51 Respiratory Rate 18 07/10/20 18:51 Blood Pressure 138/73 07/10/20 18:51 Pulse Oximetry 99 07/10/20 18:51 MDM - Abdominal Pain MDM Narrative: Medical decision making narrative: Patient presents with abdominal pain that is chronic in nature from her cirrhosis. Patient also has a history of Andrade. Patient states she is having pain. Ultrasound here showed no common bile duct dilatation. She does have a slightly elevated bilirubin likely from her cirrhosis. I spoke to her about this informed her she needs to follow-up with PCP the end of the week for recheck of her bilirubin levels. She is to return if worsening. She understands and agrees to plan. Lab Data: Labs: Lab Results 07/10/20 07/10/20 07/10/20 Range/Units 16:50 16:50 16:50 WBC 5.3 (4.0-10.0) 10^3/ uL RBC 3.79 L (4.1-5.3) 10^6/u L Hgb 11.9 (11.5-15.3) g/dL Hct 35.1 L (37.0-47.0) % MCV 92.6 (81-99) fL MCH 31.4 (28.0-34.0) pg MCHC 33.9 (30.0-36.0) g/dL RDW 14.8 (12.1-15.1) % Plt Count 110 L (130-400) 10^3/c mm MPV 11.0 H (7.4-10.4) fL Neut % (Auto) 67.3 % Lymph % (Auto) 15.9 % Beltrami % (Auto) 8.1 % Eos % (Auto) 8.3 % Baso % (Auto) 0.2 % Neut # (Auto) 3.59 (1.8-7.7) 10^3/u L Lymph # (Auto) 0.9 (0.8-4.8) 10^3/u L [place] # (Auto) 0.4 (0.2-0.9) 10^3/u L Eos # (Auto) 0.4 (0.0-0.8) 10^3/u L Baso # (Auto) 0.0 (0.0-0.1) 10^3/u L Nucleated RBC % (a uto) 0 % Nucleated RBCs # 0.0 /100WBC PT 17.00 H (12.1-14.9) SECO NDS INR 1.33 H (0.8-1.2) APTT 37.8 H (23.9-36.7) SECO NDS Sodium 136 (136-145) mmol/L Potassium 4.4 (3.5-5.1) mmol/L Chloride 101 (98-107) mmol/L Carbon Dioxide 26 (22-29) mmol/L Anion Gap 13.4 (5-19) BUN 18 (8-23) mg/dL Creatinine 1.2 H (0.5-0.9) mg/dL GFR Calculation 44.8 L (90-130) mL/min Glucose 103 (65-115) mg/dL Calculated Osmolal ity 279 L (285-295) mOsm/k g Calcium 7.8 L (8.5-10.5) mg/dL Total Bilirubin 5.0 H (0.15-1.2) mg/dL AST 152 H (0-32) U/L ALT 63 H (0-33) U/L Alkaline Phosphata se 140 H (35-105) IU/L Ammonia (11-51) umol/L Total Protein 6.7 (6.6-8.7) g/dL Albumin 2.7 L (3.5-5.2) g/dL Globulin 4.0 (1.3-4.6) g/dL Lipase 3440 H (13-60) U/L Urine Color (Yellow) Urine Appearance (CLEAR) Urine pH (5-7) Ur Specific Gravit y (1.005-1.030) Urine Protein (Negative) Urine Glucose (UA) (Normal) Urine Ketones (Negative) Urine Blood (Negative) Urine Nitrate (Negative) Urine Bilirubin (NEGATIVE) Urine Urobilinogen (Negative) mg/dL Ur Leukocyte Kinza ase (Negative) Urine RBC (0-2) /hpf Urine WBC (0-5) /hpf Ur Squamous Epith Cells (0-5) Amorphous Sediment Urine Bacteria (NONE) Hyaline Casts Urine Mucus 07/10/20 07/10/20 Range/Units 16:50 17:04 WBC (4.0-10.0) 10^3/ uL RBC (4.1-5.3) 10^6/u L Hgb (11.5-15.3) g/dL Hct (37.0-47.0) % MCV (81-99) fL MCH (28.0-34.0) pg MCHC (30.0-36.0) g/dL RDW (12.1-15.1) % Plt Count (130-400) 10^3/c mm MPV (7.4-10.4) fL Neut % (Auto) % Lymph % (Auto) % [place] % (Auto) % Eos % (Auto) % Baso % (Auto) % Neut # (Auto) (1.8-7.7) 10^3/u L Lymph # (Auto) (0.8-4.8) 10^3/u L [place] # (Auto) (0.2-0.9) 10^3/u L Eos # (Auto) (0.0-0.8) 10^3/u L Baso # (Auto) (0.0-0.1) 10^3/u L Nucleated RBC % (a uto) % Nucleated RBCs # /100WBC PT (12.1-14.9) SECO NDS INR (0.8-1.2) APTT (23.9-36.7) SECO NDS Sodium (136-145) mmol/L Potassium (3.5-5.1) mmol/L Chloride (98-107) mmol/L Carbon Dioxide (22-29) mmol/L Anion Gap (5-19) BUN (8-23) mg/dL Creatinine (0.5-0.9) mg/dL GFR Calculation (90-130) mL/min Glucose (65-115) mg/dL Calculated Osmolal ity (285-295) mOsm/k g Calcium (8.5-10.5) mg/dL Total Bilirubin (0.15-1.2) mg/dL AST (0-32) U/L ALT (0-33) U/L Alkaline Phosphata se (35-105) IU/L Ammonia 23 (11-51) umol/L Total Protein (6.6-8.7) g/dL Albumin (3.5-5.2) g/dL Globulin (1.3-4.6) g/dL Lipase (13-60) U/L Urine Color Dark yellow (Yellow) Urine Appearance Sl hazy (CLEAR) Urine pH 5 (5-7) Ur Specific Gravit y 1.020 (1.005-1.030) Urine Protein Neg (Negative) Urine Glucose (UA) Norm (Normal) Urine Ketones 1+ H (Negative) Urine Blood Neg (Negative) Urine Nitrate Negative (Negative) Urine Bilirubin 2+ H (NEGATIVE) Urine Urobilinogen 4+ H (Negative) mg/dL Ur Leukocyte Kinza ase Trace H (Negative) Urine RBC 0-4 H (0-2) /hpf Urine WBC 5-10 H (0-5) /hpf Ur Squamous Epith Cells 15-25 H (0-5) Amorphous Sediment Not Reportable Urine Bacteria 1+ H (NONE) Hyaline Casts 5-10 H Urine Mucus Trace Discharge Plan Discharge Patient Disposition: Home Clinical Impression: ANDRADE (nonalcoholic steatohepatitis) Abdominal pain Qualifiers: Abdominal location: generalized Qualified Code(s): R10.84 - Generalized abdominal pain Condition: Stable Prescriptions: No Action timolol 0.25 % drops 1 drop ophthalmic (eye) BID RF: 0 furosemide 20 mg tablet 60 mg PO DAILY Qty: 90 RF: 3 hyoscyamine sulfate 0.125 mg tablet,disintegrating 0.125 mg PO QID PRN (Reason: dyspepsia) Qty: 30 RF: 3 losartan 100 mg tablet 100 mg PO DAILY Qty: 90 RF: 1 Combigan 0.2-0.5 % Drops 1 drp ophthalmic (eye) BID RF: 0 Discharge Orders: Discharge Order (Routine); Ordered 07/10/20 Ordered By: Henny Newman Referrals: Fátima Lilly FNP [Primary Care Provider] - Discharge Diet: Advance as tolerated Discharge Activity: Resume usual activity Patient Instructions: Abdominal Pain (ED) Discharge Date/Time: 07/10/20 18:51 Coding Level of Care Code ED Lumite Injector for Chg Fwd Exam Comprehensive
[2020-07-10 17:04] LABS: Basophils % 0.2 %; Eosinophils # 0.4 10^3/uL (0.0-0.8); Eosinophils % 8.3 %; Hematocrit 35.1 % (37.0-47.0); Hemoglobin 11.9 g/dL (11.5-15.3); Lymphocytes # 0.9 10^3/uL (0.8-4.8); Lymphocytes % 15.9 %; Mean Corpuscular HGB Conc 33.9 g/dL (30.0-36.0); Mean Corpuscular Hemoglobin 31.4 pg (28.0-34.0); Mean Corpuscular Volume 92.6 fL (81-99); Monocytes # 0.4 10^3/uL (0.2-0.9); Monocytes % 8.1 %; Neutrophils # 3.59 10^3/uL (1.8-7.7); Neutrophils % 67.3 %; Nucleated Red Blood Cells % 0 %; Platelet Count 110 10^3/cmm (130-400); Red Blood Count 3.79 10^6/uL (4.1-5.3); Red Cell Distribution Width 14.8 % (12.1-15.1); White Blood Count 5.3 10^3/uL (4.0-10.0)
[2020-07-10 17:15] LABS: INR 1.33 (0.8-1.2)
[2020-07-10 17:16] LABS: Partial Thromboplastin Time 37.8 SECONDS (23.9-36.7)
[2020-07-10 17:22] LABS: Glucose Urine UA Norm (Normal); Ketones Urine 1+ (Negative); Protein Urine Neg (Negative); Urine Appearance SL Hazy (CLEAR); Urine Color Dark Yellow (Yellow); pH Urine 5 (5-7)
[2020-07-10 17:23] LABS: Ammonia 23 umol/L (11-51)
[2020-07-10 17:23] LABS: Add Urine Microscopic? YES; Bilirubin Urine 2+ (NEGATIVE); Blood Urine Neg (Negative); Leukocyte Esterase Urine Trace (Negative); Nitrate Urine Negative (Negative); Urobilinogen Urine 4+ mg/dL (Negative)
[2020-07-10 17:26] LABS: Bacteria Urine 1+; RBC Urine 0-4 /hpf (0-2); Squamous Epithelial Cell Urine 15-25 (0-5)
[2020-07-10 17:27] LABS: Add Urine Culture? No; Mucus Urine TRACE
[2020-07-10 17:28] LABS: Alanine Aminotransferase 63 U/L (0-33); Albumin Level 2.7 g/dL (3.5-5.2); Alkaline Phosphatase 140 IU/L (35-105); Anion Gap 13.4 (5-19); Aspartate Amino Transferase 152 U/L (0-32); Blood Urea Nitrogen 18 mg/dL (8-23); Calcium 7.8 mg/dL (8.5-10.5); Carbon Dioxide 26 mmol/L (22-29); Chloride 101 mmol/L (98-107); Glomerular Filtration Rate 44.8 mL/min (90-130); Glucose 103 mg/dL (65-115); Osmolality Calculated 279 mOsm/kg (285-295); Potassium 4.4 mmol/L (3.5-5.1); Sodium 136 mmol/L (136-145); Total Protein 6.7 g/dL (6.6-8.7)
--- NOTE | 2020-07-10 17:51 | USR_ITS ---
PROCEDURE INFORMATION: Exam: US Abdomen, Limited; Right Upper Quadrant Exam date and time: 07/10/2020 6:38 PM Age: 69 years old Clinical indication: Abdominal pain; Acute; Additional info: Abd pain TECHNIQUE: Imaging protocol: US abdomen. Real time ultrasound with image documentation. Limited exam focused on the right upper quadrant. COMPARISON: US gall bladder [id number] 02/04/2020 9:52 PM FINDINGS: Liver: Small nodular liver consistent with cirrhosis. Gallbladder: 2.9 mm gallbladder wall. Prominent biliary sludge within the gallbladder. Sonographically positive Donnelly's sign suggesting possible cholecystitis. Common bile duct: 3.8 mm common bile duct. Pancreas: Visualized pancreas is unremarkable. Right kidney: 9.8 x 3.8 x 4.7 cm right kidney. Intraperitoneal space: Moderate to large right upper quadrant free fluid consistent with ascites. US/US gall bladder [id number] IMPRESSION: 1. Small nodular liver consistent with cirrhosis. 2. Moderate to large right upper quadrant free fluid consistent with ascites. 3. Prominent biliary sludge within the gallbladder. 4. Sonographically positive Donnelly's sign suggesting possible cholecystitis.
[2020-07-10 17:52] LABS: Lipase 3440 U/L (13-60)
[2020-07-10 18:49] VITALS: RESP 18; O2SAT 99
[2020-07-10] MEDS: morphine 4 mg/mL SDV 1 mL IM (18:49)
[2020-07-10 18:51] VITALS: BP 138/73; PULSE 62; RESP 18; O2SAT 99
== END 2020-07-10 18:51 | disposition home or self-care (01) ==
PROVIDERS: Family Medicine; Emergency Provider Emergency Medicine; PCP Nurse Practitioner Family
DX: K75.81 Nonalcoholic steatohepatitis (NASH) (principal); E78.5 Hyperlipidemia, unspecified; I10 Essential (primary) hypertension
CPT/HCPCS: 12345; 76705; 80053; 81001; 82140; 83690; 85025; 85610; 85730; 96372; 99282; 99283; J2270

== ENCOUNTER → 2020-07-14 10:33 | Day surgery (SDC) | payer MEDICARE, SELFPAY ==
--- NOTE | 2020-07-14 10:53 | US_ITS ---
WS: [id number] Limited abdomen ultrasound, 07/14/2020 Clinical Data: ascites Comparison: Right upper quadrant ultrasound, 07/10/2020. Findings: There is a large amount of ascites in all 4 quadrants of the abdomen. US/US abdomen limited [id number] Impression: Large amount of ascites throughout the abdomen. .
[2020-07-14 11:02] VITALS: BP 100/53; PULSE 57; RESP 18; TEMP 37.1; O2SAT 98; BMI 23.6
[2020-07-14 12:40] LABS: Body Fluid Polynuclear #Cells 0.013; Body Fluid WBC 98 /uL; Monocytes # Body Fluid 0.085; RBC, Body Fluid 0 10^3/uL
[2020-07-14 12:54] LABS: Apprearance, Body Fluid CLEAR; Body Fluid Specific Gravity 1.015; Color, Body Fluid YELLOW
[2020-07-14 13:22] LABS: Fluid Alkaline Phos. 21 IU/L
[2020-07-14 13:23] LABS: Amylase Body Fluid 253 U/L; Cholesterol Body Fluid 31 mg/dL (0-200); LDH Body Fluid 74 U/L; Total Protein Body Fluid 2 g/dL; Triglycerides Body Fluid 32 mg/dL (0-150); Uric Acid Body Fluid 7 mg/dL
--- NOTE | 2020-07-14 13:45 | PM.ACPR ---
Acute Procedures Paracentesis: Time out performed: Yes Indication: Ascites Procedure: diagnostic paracentesis Location: RLQ Local anesthetic used: lidocaine 1% Amount of anesthesia used (ml): 10 Bedside ultrasound used: yes, Ascites confirmed and location marked Preparation: sterile prep and drape and 11 blade used to make teto in skin Amount of fluid obtained (ml): 4,800 Fluid: clear Post procedure exam: awake, alert Patient tolerated procedure: well Complications: none
== END ==
PROVIDERS: PCP Nurse Practitioner Family; Visit Provider Internal Medicine
DX: R18.8 Other ascites (principal)
CPT/HCPCS: 12345; 49082; 76705; 80500; 82042; 82150; 82465; 82945; 83615; 83986; 84075; 84157; 84315; 84478; 84560; 87015; 87070; 87075; 87077; 87116; 87205; 87206; 87801; 88112; 88305; 89050

== ENCOUNTER 2020-09-19 13:44 | Outpatient (CLI) | payer MEDICARE, SELFPAY ==
--- NOTE | 2020-09-19 14:00 | US_ITS ---
WS: [id number] Abdominal ultrasound, limited. History: Evaluate for ascites. Comparison: None. All 4 quadrants are imaged by ultrasound to evaluate for ascites. There is a large amount of ascites throughout the peritoneal cavity. Will not attempt paracentesis today due to the significant hypotens ion. US/US abdomen limited [id number] IMPRESSION: Large amount of ascites.
[2020-09-19 15:29] VITALS: BP 114/67; PULSE 65; RESP 18; TEMP 36.8; O2SAT 100; BMI 25.4
--- NOTE | 2020-09-20 09:52 | PM.ACPR ---
Acute Procedures Paracentesis: Time out performed: Yes Indication: Ascites Procedure: therapeutic paracentesis Location: RLQ Local anesthetic used: lidocaine 1% Amount of anesthesia used (ml): 10 Preparation: sterile prep and drape and 11 blade used to make teto in skin Amount of fluid obtained (ml): 8,150 Fluid: clear Size of needle used: 14 Post procedure exam: awake, alert Patient tolerated procedure: well and no complications Complications: none
== END 2020-09-19 13:45 | disposition home or self-care (01) ==
LOC: RAD 14:13 → OPS 14:41
PROVIDERS: PCP Nurse Practitioner Family; Visit Provider Internal Medicine
DX: R18.8 Other ascites (principal)
CPT/HCPCS: 12345; 49082; 76705

== ENCOUNTER → 2021-01-24 10:05 | Outpatient (BNVA) | payer MEDICARE, SELFPAY | PROVIDERS: PCP Nurse Practitioner Family; Visit Provider Internal Medicine | DX: K74.60 Unspecified cirrhosis of liver (principal); E87.6 Hypokalemia | CPT/HCPCS: 36415; 80048; 82105; 85025 ==

== ENCOUNTER 2021-02-19 09:20 | Outpatient (CLI) | payer MEDICARE, SELFPAY ==
[2021-02-19 10:00] LABS: Anion Gap 14.6 (5-19); Blood Urea Nitrogen 58 mg/dL (8-23); Carbon Dioxide 20 mmol/L (22-29); Chloride 108 mmol/L (98-107); Glomerular Filtration Rate 19.2 mL/min (90-130); Glucose 89 mg/dL (65-115); Osmolality Calculated 300 mOsm/kg (285-295); Potassium 5.6 mmol/L (3.5-5.1); Sodium 137 mmol/L (136-145)
== END 2021-02-19 09:21 | disposition home or self-care (01) ==
LOC: LAB 09:27
PROVIDERS: PCP Nurse Practitioner Family; Visit Provider Internal Medicine
DX: K74.60 Unspecified cirrhosis of liver (principal); R60.9 Edema, unspecified
CPT/HCPCS: 36415; 80048

== ENCOUNTER → 2021-03-19 09:51 | Day surgery (SDC) | payer MEDICARE, SELFPAY ==
[2021-03-19 10:41] VITALS: BP 108/71; PULSE 67; RESP 18; TEMP 37.1; O2SAT 98
[2021-03-19 10:54] VITALS: BMI 20.6
--- NOTE | 2021-03-19 11:00 | US_ITS ---
WS: [id number] ULTRASOUND-GUIDED PARACENTESIS CLINICAL INFORMATION: R18.8 - Other ascites COMPARISON: None. FINDINGS/IMPRESSION Ultrasound used for paracentesis marking
== END ==
PROVIDERS: PCP Nurse Practitioner Family; Visit Provider Internal Medicine
DX: R18.8 Other ascites (principal)
CPT/HCPCS: 49082; 49083

== ENCOUNTER → 2021-04-16 10:57 | Outpatient (BNVA) | payer MEDICARE, SELFPAY | PROVIDERS: PCP Nurse Practitioner Family; Visit Provider Internal Medicine Gastroenterology | DX: K74.60 Unspecified cirrhosis of liver (principal) | CPT/HCPCS: 82105 ==

== ENCOUNTER 2022-04-24 13:47 | Outpatient (CLI) | payer MEDICARE, SELFPAY ==
--- NOTE | 2022-04-24 14:05 | CT_ITS ---
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 TECHNIQUE: Contiguous axial imaging performed through the brain in 2.5 mm imaging. Bone and soft tiss ue windows. Sagittal and coronal reformats reviewed. All CT scans at [facility] use at least one of these dose optimization techniques: automated exposure control; mA and/or kV adjustment per pa tient size (includes targeted exams where dose is matched to clinical indication); or iterative recon struction. DLP: 1222.70 mGy-cm. COMPARISON: None available. Solid mass centered and arising from the sella turcica. Mass extends above the sella turcica and disp laces the optic chiasm superiorly and also the infundibulum is displaced. There is small amount calci fication in the wall and a few areas of increased density which are probably hemorrhage. There is mil d widening and expansion of the sella turcica. This mass measures 2.5 x 1.8 cm and extends over a mike gth of 2.1 cm. Mass extends into the cavernous sinuses, slightly greater on the RIGHT to abut but not displace the distal carotid arteries. 5 mm hyperdense nodule in the LEFT lateral mass is probably an area of hemorrhage or developing calcification. Otherwise mild cerebral atrophy and small vessel ischemic disease. No prior infarct. No inferior displacement of cerebellar tonsils. Ventricles: Normal size with no hydrocephalus. Paranasal sinuses: There is a small air-fluid level in the LEFT sphenoid sinus. Mastoid air cells: Well pneumatized. Calvarium and scalp: Skull is intact with no soft tissue edema or swelling. CT/CT head wo con* [id number] IMPRESSION: 1. Solid soft tissue mass with a few areas of hemorrhage or calcification cent ered in the sella turcica. 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 Differential would include meningioma although thought less likely. Recommend f ollow-up MRI brain/pituitary with and without contrast. 2. No hydrocephalus. 3. Mild atrophy.
== END 2022-04-24 13:48 | disposition home or self-care (01) ==
LOC: RAD 13:49
PROVIDERS: PCP Nurse Practitioner Family; Visit Provider Ophthalmology
DX: D44.3 Neoplasm of uncertain behavior of pituitary gland (principal); G31.9 Degenerative disease of nervous system, unspecified
CPT/HCPCS: 70450

== ENCOUNTER 2022-05-09 13:45 | Outpatient (CLI) | payer MEDICARE, SELFPAY ==
--- NOTE | 2022-05-09 14:21 | MR_ITS ---
WS: [id number] MRI BRAIN WITHOUT AND WITH CONTRAST, ATTENTION DIRECTED TO THE PITUITARY GLAND HISTORY: NEOPLASM OF UNCERTAIN BEHAVIOR PITUITARY GLAND COMPARISON: CT head 04/24/2022. TECHNIQUE: Diffusion-weighted imaging, axial T2 sequence, and postcontrast images in 3 planes are per formed. High-resolution coronal and sagittal imaging performed through the pituitary region with and without intravenous gadolinium. Large lobulated soft tissue mass centered in the sella turcica extends suprasellar. A few scattered a reas of T1 shortening thought to be calcification. No hemosiderin was noted on the susceptibility trae ging. Sellar/suprasellar mass is intermediate signal on the T1 sequences, moderately increased on the T2 sequences with mild heterogeneous enhancement. Mass extends superior inferior by 2.1 cm, transver sely 2.4 cm, anterior posterior 1.7 cm. Mass extends into the cavernous sinuses and there is 50% enca sement of the RIGHT carotid artery just less than 50% of the LEFT carotid artery. No fat plane betwee n the pituitary neoplasm and the carotid arteries. There is mild displacement of the anterior cerebra l arteries superiorly. Optic chiasm is displaced superiorly. There is mass effect upon the distal RIG HT supraclinoid carotid artery. There is an additional RIGHT supraclinoid carotid artery bulging consistent with an aneurysm measurin g 9 x 6 mm. This aneurysm is being displaced superiorly and anteriorly by the macroadenoma. The contr ast opacification is very limited. Tiny focus of hemosiderin lateral RIGHT inferior temporal lobe. Additional 9 mm nodule with hemosider in in the posterior RIGHT frontal lobe may be a small venous malformations. LEFT sphenoid sinus disease. No mastoid effusions of significance. MR/MR pituitary wo/w con* [id number] IMPRESSION: 1. 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 2. 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 This aneurysm is being displaced by the pituitary macroadenoma anteriorly and superiorly. Recommend M R angiogram [place] to better evaluate this aneurysm and for additiona l aneurysms. 3. Small hemosiderin deposits in the inferior lateral RIGHT temporal and RIGHT posterior frontal lobe. May represent very small venous malformations.
[2022-05-09 15:45] LABS: Cortisol Random 6.15 ug/dL (2.47-19.5)
[2022-05-09 15:47] LABS: Alanine Aminotransferase 14 U/L (0-33); Albumin Level 3.2 g/dL (3.5-5.2); Alkaline Phosphatase 60 IU/L (35-105); Anion Gap 12.2 (5-19); Aspartate Amino Transferase 39 U/L (0-32); Blood Urea Nitrogen 12 mg/dL (8-23); Calcium 8.5 mg/dL (8.5-10.5); Carbon Dioxide 22 mmol/L (22-29); Chloride 108 mmol/L (98-107); Free T4 Free Thyroxine 0.76 ng/dL (0.82-1.77); Globulin 3.6 g/dL (1.3-4.6); Glomerular Filtration Rate 49.2 mL/min (90-130); Glucose 118 mg/dL (65-115); Osmolality Calculated 287 mOsm/kg (285-295); Potassium 4.2 mmol/L (3.5-5.1); Sodium 138 mmol/L (136-145); Thyroid Stimulating Hormone 3.15 uIU/mL (0.27-4.20); Total Bilirubin 1.3 mg/dL (0.15-1.2); Total Protein 6.8 g/dL (6.6-8.7)
[2022-05-09 17:07] LABS: Follicle Stimulating Hormone 35.7 mIU/mL; Luteinizing Hormone 19.1 mIU/mL (0.5-41.7)
[2022-05-13 16:18] LABS: IGF1 LC/MS 36 ng/mL (41-279); Z Score (Female) -2.1 SD (-2.0 - +2.0)
[2022-05-13 22:12] LABS: Adrenocorticotropic Hormone 16 pg/mL (6-50)
== END 2022-05-09 13:46 | disposition home or self-care (01) ==
PROVIDERS: Ophthalmology; PCP Nurse Practitioner Family; Visit Provider Student in an Organized Health Care Education/Training Program
DX: D44.3 Neoplasm of uncertain behavior of pituitary gland (principal); I72.0 Aneurysm of carotid artery; R94.6 Abnormal results of thyroid function studies
CPT/HCPCS: 70553; 80053; 82024; 82533; 83001; 83002; 83003; 84146; 84305; 84439; 84443